=== PATIENT | male | born 1935 | race African-American/Black ===

== ENCOUNTER 2017-03-14 10:15 | Day surgery (SDC) | payer MEDICARE, MEDICAID ==
[2017-03-14] MEDS ORDERED: Sodium Chloride 0.9% 20 ML ONE (10:23)
[2017-03-14] MEDS ORDERED: ADMIXTURE FEE IVPB SCH ×2 (10:30→10:45)
[2017-03-14] MEDS ORDERED: PEMETREXED IVPB SCH ×2 (10:30→10:45)
[2017-03-14] MEDS ORDERED: SODIUM CHLORIDE IVPB SCH ×2 (10:30→10:45)
[2017-03-14] MEDS ORDERED: Ondansetron 2MG/ML MDV 10 MG, Dexamethasone 10 MG, Admixture Fee 1 EACH in Sodium Chlor... IVP SCH (10:30)
[2017-03-14 10:50] VITALS: BP 169/74; TEMP 97.6
== END 2017-03-14 12:34 | disposition home or self-care (01) ==
LOC: ONC/OP 10:15
PROVIDERS: ATTEND Internal Medicine Medical Oncology
DX: Z51.11 Encounter for antineoplastic chemotherapy (principal); C34.11 Malignant neoplasm of upper lobe, right bronchus or lung; C77.8 Secondary and unspecified malignant neoplasm of lymph nodes of multiple regions; C61 Malignant neoplasm of prostate; F17.200 Nicotine dependence, unspecified, uncomplicated; Z79.899 Other long term (current) drug therapy; Z95.828 Presence of other vascular implants and grafts; Z92.21 Personal history of antineoplastic chemotherapy; Z92.3 Personal history of irradiation; Z80.9 Family history of malignant neoplasm, unspecified
CPT/HCPCS: 36415; 80053; 82248; 83615; 84100; 84550; 96367; 96413; A4216; J1100; J1642; J2405; J7050; J9305

== ENCOUNTER 2017-04-13 00:51 | Inpatient (IN) | payer MEDICARE, MEDICAID ==
[2017-04-13 01:55] LABS: Anion Gap 12 mmol/L (-14-95); T. Carbon Dioxide 19.8 mmol/L (1.0-85.0); pH (Venous) 7.302 (7.35-7.45); vO2 Saturation-calc 63.7 % (0.0-100.0)
[2017-04-13 02:04] LABS: Osmolality, Serum 359 mOsm/kg (280-295)
[2017-04-13 02:07] LABS: Anion Gap 23 mmol/L (10-20); BUN (Urea Nitrogen) 45 mg/dL (8.4-25.7); Calc. Creatinine Clearance 0 mL/min (70-130); Calcium 10.4 mg/dL (7.8-10.44); Carbon Dioxide 15 mmol/L (23-31); Chloride 105 mmol/L (98-107); Estimated GFR-MDRD 43
[2017-04-13 02:15] LABS: PTT 17.4 SEC (22.9-36.1)
[2017-04-13 02:21] LABS: Troponin I 0.047 ng/mL (< 0.028)
[2017-04-13] MEDS ORDERED: Eucerin (Mineral Oil/Petrolatum,White) 30 gm Jar TOP PRN (03:11)
[2017-04-13] MEDS ORDERED: Milk Of Magnesia 30 ML UDCUP PO PRN (03:11)
[2017-04-13] MEDS ORDERED: Mag-Al 1200 mg/1200 mg/30 ML UDCUP PO PRN (03:11)
[2017-04-13] MEDS ORDERED: Loratadine 10 MG TAB PO PRN (03:11)
[2017-04-13] MEDS ORDERED: Sodium Chloride 0.65% Nasal 44 ML BOT EA NARE PRN (03:11)
[2017-04-13] MEDS ORDERED: Senokot 8.6 MG TAB PO PRN (03:11)
[2017-04-13] MEDS ORDERED: Acetaminophen 325 MG TAB PO PRN (03:11)
[2017-04-13] MEDS ORDERED: HYDROcodone/Acetaminophen 5/325 mg Tablet PO PRN (03:11)
[2017-04-13] MEDS ORDERED: Diabetic Tussin 200 MG/10 ML UDCUP PO PRN (03:11)
[2017-04-13] MEDS ORDERED: hydrALAZINE 20 MG/ML VIAL SLOW IVP PRN (03:11)
[2017-04-13] MEDS ORDERED: Zolpidem Tartrate 5 MG TAB PO PRN (03:11)
[2017-04-13] MEDS ORDERED: Ondansetron ODT 4 MG TAB PO PRN (03:11)
[2017-04-13] MEDS ORDERED: Ondansetron HCl/PF 4 MG/2 ML Vial IVP PRN (03:11)
[2017-04-13] MEDS ORDERED: Artificial Tears 18 DROP/0.9 ML EA EYE PRN (03:11)
[2017-04-13] MEDS ORDERED: Loperamide HCl 2 MG CAP PO PRN (03:11)
[2017-04-13] MEDS ORDERED: Chloraseptic Spray 180 ml Bottle PO PRN (03:11)
[2017-04-13 03:23] VITALS: BMI 15.5
[2017-04-13] MEDS: Sodium Chloride 0.9% 1,000 ML IV SCH ×3 (03:35→21:29)
--- NOTE | 2017-04-13 04:51 | HP ---
PRIMARY CARE PHYSICIAN: Unknown. [facility] call admission. REASON FOR ADMISSION: Transfer from [facility] for hyperosmolar nonketotic state, acute kidney failure. HISTORY OF PRESENT ILLNESS: An 81-year-old -[place] male who has underlying history of lung cancer and he is getting chemotherapy. He went to [facility] for generalized weakness. Patient was having difficulty ambulation. He was feeling weak. Lately, he was having increasing urination and he was feeling thirsty. The patient was diagnosed with a hyperosmolar nonketotic state at [facility]. This patient is a very poor historian, so most of the history obtained from the emergency room record. The patient denies any previous history of diabetes. He does report weight loss. He denies any constipation, diarrhea. He denies any nausea or vomiting. He denies any chest pain, palpitations, shortness of breath. He denies any abdominal pain. PAST MEDICAL HISTORY: History of prostate cancer, history of lung cancer on chemotherapy. PAST SURGICAL HISTORY: Appendicectomy, MediPort placement on the right upper chest, bronchoscopy. PAST PSYCHIATRIC HISTORY: Reviewed and negative. SOCIAL HISTORY: The patient lives at home with family. He has history of smoking, but quantity unable to determine. He denies any alcohol abuse. He denies any other illicit drug abuse. FAMILY HISTORY: No strong family history of CAD, CVA or cancer. EMERGENCY ROOM COURSE: At the [facility], the patient was started on insulin drip. IV fluid was given. Aspirin 324 mg was given. CURRENT HOME MEDICATIONS: Promethazine 12.5 mg 4 times daily, dexamethasone 4 mg daily, folic acid 1 mg daily, Flomax 0.4 mg p.o. at bedtime. ALLERGIES: No known drug allergies. REVIEW OF SYSTEMS: The following complete review of systems was negative, unless otherwise mentioned in the HPI or below: Constitutional: Weight loss or gain, ability to conduct usual activities. Skin : Rash, itching. Eyes: Double vision, pain. ENT/Mouth: Nose bleeding, neck stiffness, pain, tenderness. Cardiovascular: Palpitations, dyspnea on exertion , orthopnea. Respiratory: Shortness of breath, wheezing, cough, hemoptysis, fever or night sweats. Gastrointestinal: Poor appetite, abdominal pain, heartburn, nausea, vomiting, constipation, or diarrhea. Genitourinary: Urgency , frequency, dysuria, nocturia. Musculoskeletal: Pain, swelling. Neurologic/ Psychiatric: Anxiety, depression. Allergy/Immunologic: Skin rash, bleeding tendency. Please see my HPI for pertinent positives and negatives. All other review of systems reviewed and negative except as mentioned in the HPI. PHYSICAL EXAMINATION: VITAL SIGNS: Currently in our emergency room, blood pressure 125/77, pulse 115 , respiratory rate 22, temperature 98.5, saturation 100%, weight 49.9 kilograms. GENERAL: Patient is currently alert, awake, appears very weak. No acute distress. HEENT: Head: Normocephalic, atraumatic. Eyes: Pupils round, reactive to light. Extraocular muscle intact. ENT: Oropharynx within normal limits. Dry mucous membranes, no oral lesions, no pharyngeal erythema, no exudate. NECK: Supple. Range of motion is normal. No meningeal signs of irritation. LUNGS: Clear to auscultation without any rhonchi or rales. CARDIAC: S1, S2 regular, tachycardia, no murmur, no gallop, no rub. ABDOMEN: Soft, bowel sounds present, nontender, nondistended. No organomegaly , no mass, no suprapubic tenderness. BACK: Unremarkable, no CVA tenderness. EXTREMITIES: Upper extremity passive movement of all joints are normal. Lower extremities: No edema. Good peripheral pulsation. SKIN: No skin rash. Dry. HEMATOLOGICAL SYSTEM: No lymphadenopathy. PSYCHIATRIC: Normal affect. NEUROLOGIC: Nonfocal examination. Patient is moving all 4 limbs, though patient is slightly appears confused. SIGNIFICANT LABORATORY DATA: Chest x-ray based on my review, no acute cardiopulmonary process. Patient has a stable right suprahilar and left lower lobe infiltration. CT brain based on my review, no acute intracranial process. CBC: WBC 9.9, hemoglobin 12.8, platelet 187. INR 1.1, VBG: pH 7.30, CO2 of 37.7, bicarbonate 18.6. BMP: Sodium 139, potassium 5.4, chloride 96, carbon dioxide 18, BUN 48, creatinine 2.08, glucose 1066, calcium 11.5, phosphorus 4.5 , magnesium 2.9. LFT: AST 12, ALT 24, alkaline phosphatase 85, albumin 4.5, lipase 62, CK-MB 1.4 , troponin I 0.030 and subsequent troponin 0.047. Urinalysis unremarkable with glucosuria. ASSESSMENT AND PLAN: 1. Acute metabolic encephalopathy likely due to hyperosmolar nonketotic state as well as acute kidney failure and dehydration. Patient's CT brain is negative for any acute intracranial process and he does not have any focal neurological deficit. 2. Hyperosmolar nonketotic state. This patient has new onset hyperglycemia with diabetes. We will check hemoglobin A1c. Given his severe hyperglycemia, we will keep this patient in IMCU and continue with insulin drip. This patient does not need any overlapping with the dextrose. Once blood sugar is reasonably controlled, then we will turn off insulin drip and start long-acting insulin. We will keep this patient subsequently to medical floor and titrate insulin requirement while in the hospital. The patient will be given IV fluid during this period. 3. Acute kidney failure, likely due to prerenal etiology secondary to hyperosmolar state and osmotic diuresis. The patient will be given NS at 100 mL per hour. We will avoid nephrotoxic agents and we will monitor renal function. We are expecting with hydration, the patient's renal function will improve. 4. Hyperkalemia, likely related with dehydration. We will repeat BMP tomorrow. 5. Elevated troponin, likely due to demand ischemia. We will do serial cardiac enzymes and rule out acute coronary syndrome. Meanwhile, we will continue with aspirin 81 mg p.o. daily. We will check lipid profile tomorrow morning. 6. Moderate protein calorie malnutrition. The patient will be given nutritional supplement with Glucerna. 7. Macrocytic anemia. We will continue with folic acid, vitamin B12 therapy while in hospital. 8. Benign enlargement of prostate with a history of prostate cancer. We will continue Flomax 0.4 mg p.o. daily. 9. Cancer of the lung. Patient is getting chemotherapy. We will notify Oncology tomorrow morning. 10. Generalized weakness. The patient will need PT, OT while in hospital and possible placement if needed. 11. Deep venous thrombosis prophylaxis, heparin 5000 units subcu twice daily. 12. Gastrointestinal prophylaxis. Protonix 40 mg p.o. daily. CODE STATUS: The patient is FULL CODE. Patient does not have any surrogate decision maker. Disposition plan based on clinical course. We are expecting patient's stay in the hospital more than 2 midnights. Plan of care discussed with the patient in detail. RONI
[2017-04-13 06:03] LABS: #Monocytes 0.6 thou/uL (0.11-0.59); #Neutrophils 10.5 thou/uL (1.40-6.50); %Basophils 0.1 % (0.0-1.0); %Eosinophils 0.3 % (0.0-10.0); Hematocrit 38.7 % (42.0-52.0); Mean Platelet Volume 7.7 fL (7.4-10.4); Red Blood Cell (RBC) Count 4.11 mill/uL (4.70-6.10); White Blood Cell (WBC) Count 12.1 thou/uL (4.8-10.8)
[2017-04-13 06:13] LABS: Hemoglobin A1c 10.3 % (4.0-6.0)
[2017-04-13 06:19] LABS: ALT (SGPT) 19 U/L (8-55); AST (SGOT) 14 U/L (5-34); Alkaline Phosphatase 81 U/L (40-150); Anion Gap 19 mmol/L (10-20); BUN (Urea Nitrogen) 42 mg/dL (8.4-25.7); Bilirubin, Total 0.4 mg/dL (0.2-1.2); Calc. Creatinine Clearance 26 mL/min (70-130); Calcium 11.1 mg/dL (7.8-10.44); Carbon Dioxide 22 mmol/L (23-31); Chloride 106 mmol/L (98-107); Cholesterol 233 mg/dl (< 200 Desired); Estimated GFR-MDRD 54; Globulin 3.8 g/dL (2.4-3.5); LDL Cholesterol, Calculated 126 mg/dL; Magnesium 2.8 mg/dL (1.6-2.6); Phosphorus 2.4 mg/dL (2.3-4.7)
[2017-04-13 06:21] LABS: Troponin I 0.053 ng/mL (< 0.028)
[2017-04-13] MEDS: Heparin 5,000 UNITS/ML VIAL SC SCH ×2 (08:10→21:23)
[2017-04-13] MEDS: Folic Acid 1 MG TAB PO SCH (08:15)
[2017-04-13] MEDS: Cyanocobalamin (Vitamin B-12) 1,000 MCG TAB PO SCH (08:15)
[2017-04-13] MEDS: Multivitamin W/ Minerals 1 TAB PO SCH (08:15)
[2017-04-13] MEDS ORDERED: FLU VACC TS2017-18 (>65YR) 0.5 ML SYRINGE IM ONE (09:00)
--- NOTE | 2017-04-13 11:17 | CON ---
DATE OF CONSULTATION: 04/13/2017 HISTORY OF PRESENT ILLNESS: This is an 81-year-old gentleman who was admitted for w eakness, uncontrolled diabetes. He was seen by me about 2 years ago when he had a 3 x 2.5 cm right a pex. He underwent a bronchoscopy at that time. He has been smoking for most of his life. It is unclear whether he is smoking at this time, but prio r to that he had no TB or pneumonia. He is weak, slightly confused. History is extensively outlined in previous medical records. PAST MEDICAL HISTORY: Extensive chemical fernandez, a prolonged hospitalization in [place], prostate can cer, BPH, lung cancer. PAST SURGICAL HISTORY: Cataract, appendix, prostate. MEDICATIONS: From home has included Flomax 0.4, Megace 40, folic acid, Decadron, Casodex 50, Tylenol . Since admission, he is started on insulin drip and antibiotics. REVIEW OF SYSTEMS: Unremarkable. PHYSICAL EXAMINATION: GENERAL: He is awake, alert, responsive, in no distress. VITAL SIGNS: Saturations 100%, pulse 107, 97, blood pressure 100/65. CHEST: Chest revealed decreased breath sounds without any wheezing. CARDIAC: Normal S1-S2. No gallops. ABDOMEN: Soft. No masses. LABORATORY: White count 10,000, H&H is 12 and 38, platelet count is 192, blood sugar this morning is 349, on insulin drip. Creatinine 1.52. IMPRESSION: 1. Uncontrolled diabetes, nonketotic diabetic situation. 2. Non-small cell lung cancer. 3. Cachexia. 4. Benign prostatic hypertrophy. 5. Prostate cancer. PLAN: Continue insulin, switch over to oral medication. Otherwise, PT, nutrition, and supportive ca re. Prognosis is poor. Will discuss with family as they arrive.
--- NOTE | 2017-04-13 12:48 | PDOC.EVN ---
Event Note - Event Note Event Note: Pt seen and examined, admitted formetabolic encephalopathy, acidemic with pH 7.3 , elevated glucose, and B-hydroxybutarate of 1.74. Seen by pulm. Pt without known history of DM. On insulin gtt, no gap. trnasition to a long acting insulin, SSi for correction. Poor prognosis per pulm.
[2017-04-13] MEDS ORDERED: Dextrose 50% Abboject 50 ML SYRINGE IVP PRN (15:18)
[2017-04-13] MEDS ORDERED: Dextrose 5% in Water 1,000 ML IV PRN (15:18)
[2017-04-13] MEDS ORDERED: Insulin Detemir 100 UNITS/ML 30 UNITS in Pre-Filled Syringe SC SCH (15:30)
[2017-04-13] MEDS: HumaLOG 300 UNITS/3 ML VIAL SC PRN (21:23)
[2017-04-14 05:16] LABS: #Lymphocytes 0.7 thou/uL (1.20-3.40); #Monocytes 0.2 thou/uL (0.11-0.59); #Neutrophils 5.8 thou/uL (1.40-6.50); %Basophils 0.2 % (0.0-1.0); %Eosinophils 0.7 % (0.0-10.0); %Monocytes 2.6 % (0.0-10.0); Mean Platelet Volume 7.6 fL (7.4-10.4); Red Blood Cell (RBC) Count 3.48 mill/uL (4.70-6.10); White Blood Cell (WBC) Count 6.7 thou/uL (4.8-10.8)
[2017-04-14 05:50] LABS: Anion Gap 12 mmol/L (10-20); BUN (Urea Nitrogen) 22 mg/dL (8.4-25.7); Calc. Creatinine Clearance 51 mL/min (70-130); Carbon Dioxide 22 mmol/L (23-31); Chloride 111 mmol/L (98-107); Estimated GFR-MDRD Greater than 90
[2017-04-14] MEDS: HumaLOG 300 UNITS/3 ML VIAL SC PRN ×2 (06:14→20:52)
[2017-04-14] MEDS: Sodium Chloride 0.9% 1,000 ML IV SCH ×2 (06:19→16:49)
[2017-04-14] MEDS: Multivitamin W/ Minerals 1 TAB PO SCH (09:12)
[2017-04-14] MEDS: Heparin 5,000 UNITS/ML VIAL SC SCH ×2 (09:13→20:51)
[2017-04-14] MEDS: Cyanocobalamin (Vitamin B-12) 1,000 MCG TAB PO SCH (09:13)
[2017-04-14] MEDS: Folic Acid 1 MG TAB PO SCH (09:13)
--- NOTE | 2017-04-14 09:46 | PRG ---
DATE OF SERVICE: 04/14/2017 SUBJECTIVE: This morning, the patient is awake, alert, responsive, in no distress. OBJECTIVE: VITAL SIGNS: Blood pressure is 110/69, sats are 100%, pulse 66, temperature 98. CHEST: Chest reveals decreased breath sounds, no wheezing. CARDIAC: Normal S1, S2, no gallops. ABDOMEN: Soft, no masses. LABORATORY DATA: White count 6000, H&H is 10 and 30, platelet count normal. Blood sugar 154. IMPRESSION: 1. Chronic obstructive pulmonary disease. 2. Lung cancer. 3. Diabetes. 4. Azotemia, resolved. PLAN: From the pulmonary standpoint of view, switch him to oral antibiotics. He can be transferred out of the MICU.
[2017-04-14] MEDS ORDERED: Dexamethasone 4 MG TAB PO SCH (11:00)
[2017-04-14] MEDS ORDERED: Bicalutamide 50 MG TAB PO SCH (11:00)
[2017-04-14] MEDS ORDERED: Megestrol Acetate 40 MG TAB PO SCH (11:00)
--- NOTE | 2017-04-14 15:49 | PDOC.PN ---
- Subjective Encounter Start Date: 04/14/17 Encounter Start Time: 15:44 Subjective: suzanne and examined. no new complaints. no overnight events - Objective Resuscitation Status: Resuscitation Status FULL:Full Resuscitation MAR Reviewed: Yes Vital Signs & Weight: Vital Signs (12 hours) Temp Pulse Resp BP Pulse Ox 04/14/17 11:44 98.9 F 103 H 18 04/14/17 11:20 98.9 F 103 H 18 124/75 04/14/17 10:45 99.1 F 106 H 18 119/71 100 04/14/17 07:48 98.5 F 102 H 20 100 04/14/17 07:17 98.5 F 102 H 20 110/69 100 04/14/17 04:00 98.7 F 103 H 16 133/85 100 Weight Admit Weight 105 lb 4.8 oz Weight 105 lb 4.8 oz I&O: 04/13/17 04/14/17 04/15/17 06:59 06:59 06:59 Intake Total 283 3880.4 581 Output Total 100 100 Balance 183 3780.4 581 Result Diagrams: 04/14/17 05:01 04/14/17 05:01 Additional Labs: Accuchecks 04/14/17 04/14/17 04/14/17 10:46 05:33 00:54 POC Glucose 137 H 154 H 103 04/14/17 04/13/17 04/13/17 00:14 20:30 16:13 POC Glucose 59 L* 165 H 83 Laboratory Tests 04/13/17 04/13/17 04/13/17 01:29 01:40 01:52 WBC POC VBG pH 7.302 L VBG pCO2 37.7 L Anion Gap 23 H Creatinine 1.83 H Glucose 816 H* Hemoglobin A1c Troponin I 0.047 H Triglycerides Cholesterol LDL Cholesterol, Calc B-Hydroxybutyrate 04/13/17 04/13/17 04/13/17 05:53 05:53 05:53 WBC POC VBG pH VBG pCO2 Anion Gap 19 Creatinine 1.52 H Glucose 560 H* Hemoglobin A1c Troponin I 0.053 H Triglycerides 364 H Cholesterol 233 H LDL Cholesterol, Calc 126 B-Hydroxybutyrate 1.74 H 04/13/17 04/13/17 04/14/17 05:53 05:53 05:01 WBC 12.1 H POC VBG pH VBG pCO2 Anion Gap 12 Creatinine 0.77 Glucose 127 H Hemoglobin A1c 10.3 H Troponin I Triglycerides Cholesterol LDL Cholesterol, Calc B-Hydroxybutyrate 04/14/17 05:01 WBC 6.7 POC VBG pH VBG pCO2 Anion Gap Creatinine Glucose Hemoglobin A1c Troponin I Triglycerides Cholesterol LDL Cholesterol, Calc B-Hydroxybutyrate Microbiology 04/12/17 22:10 Venous blood - Left Hand Blood Culture - Preliminary Specimen has been received and culture in progress. No Growth to date. 04/12/17 21:55 Venous blood - Left Arm Blood Culture - Preliminary Specimen has been received and culture in progress. No Growth to date. 04/12/17 21:50 Urine voided Urine Culture - Preliminary negative so far Phys Exam - Physical Examination Constitutional: NAD HEENT: PERRLA, moist MMs, sclera anicteric, oral pharynx no lesions Neck: no nodes, no JVD, supple, full ROM Respiratory: no wheezing, no rales, no rhonchi, clear to auscultation bilateral Cardiovascular: RRR, no significant murmur Gastrointestinal: soft, non-tender, no distention, positive bowel sounds Musculoskeletal: no edema, pulses present Neurological: non-focal, normal sensation, moves all 4 limbs Psychiatric: normal affect, A&O x 3 Skin: no rash Dx/Plan (1) Newly diagnosed diabetes Code(s): E11.9 - TYPE 2 DIABETES MELLITUS WITHOUT COMPLICATIONS Status: Acute (2) PNA (pneumonia) Code(s): J18.9 - PNEUMONIA, UNSPECIFIED ORGANISM Status: Acute (3) Diabetic hyperosmolar non-ketotic state Code(s): E11.00 - TYPE 2 DIAB W HYPROSM W/O NONKET HYPRGLY-HYPROS COMA (N[facility]) Status: Suspected (4) BETTY (acute kidney injury) Code(s): N17.9 - ACUTE KIDNEY FAILURE, UNSPECIFIED Status: Resolved (5) Acute metabolic encephalopathy Code(s): G93.41 - METABOLIC ENCEPHALOPATHY Status: Resolved (6) Hyperkalemia Code(s): E87.5 - HYPERKALEMIA Status: Resolved (7) Malnutrition Code(s): E46 - UNSPECIFIED PROTEIN-CALORIE MALNUTRITION Status: Chronic Qualifiers: Malnutrition type: protein-calorie malnutrition Protein-calorie malnutrition severity: moderate Qualified Code(s): E44.0 - Moderate protein- calorie malnutrition (8) Chronic anemia Code(s): D64.9 - ANEMIA, UNSPECIFIED Status: Acute (9) COPD (chronic obstructive pulmonary disease) Status: Acute (10) Lung cancer Code(s): C34.90 - MALIGNANT NEOPLASM OF UNSP PART OF UNSP BRONCHUS OR LUNG Status: Chronic (11) H/O malignant neoplasm of prostate Code(s): Z85.46 - PERSONAL HISTORY OF MALIGNANT NEOPLASM OF PROSTATE Status: Chronic (12) Hyperlipidemia Code(s): E78.5 - HYPERLIPIDEMIA, UNSPECIFIED Status: Acute Comment: New diagnosis - Plan DVT proph w/SCDs Consult manager [facility] for Diabetic and low fat diet education. -: blood sugar better controlled.Will need insulin+OHG on Dc w glucometer etc -: Cont levaquin for PNA on cxr.change to PO. -: OK to transfer to medical. -: may need to add Statin & Fish Oil etc later if diet fails for HLD * . Review of Systems - Review of Systems Constitutional: negative: Fever, Chills, Sweats, Weakness, Malaise, Other Eyes: negative: Pain, Vision Change, Conjunctivae Inflammation, Eyelid Inflammation, Redness, Other ENT: negative: Ear Pain, Ear Discharge, Nose Pain, Nose Discharge, Nose Congestion, Mouth Pain, Mouth Swelling, Throat Pain, Throat Swelling, Other Respiratory: negative: Cough, Dry, Shortness of Breath, Hemoptysis, SOB with Excertion, Pleuritic Pain, Sputum, Wheezing Cardiovascular: negative: Chest Pain, Palpitations, Orthopnea, Paroxysmal Noc. Dyspnea, Edema, Light Headedness, Other Gastrointestinal: negative: Nausea, Vomiting, Abdominal Pain, Diarrhea, Constipation, Melena, Hematochezia, Other Genitourinary: negative: Dysuria, Frequency, Incontinence, Hematuria, Retention , Other Musculoskeletal: negative: Neck Pain, Shoulder Pain, Arm Pain, Back Pain, Hand Pain, Leg Pain, Foot Pain, Other Neurological: negative: Weakness, Numbness, Incoordination, Change in Speech, Confusion, Seizures, Other - Medications/Allergies Allergies/Adverse Reactions: Allergies Allergy/AdvReac Type Severity Reaction Status Date / Time No Known Allergies Allergy Verified 04/13/17 03:40 Medications: Current Medications Acetaminophen (Tylenol) 650 mg PO Q4H PRN PRN Reason: Headache/Fever or Pain Hydrocodone Bitart/Acetaminophen ([place] 5/325) 1 tab PO Q4H PRN PRN Reason: Moderate Pain (4-6) Al Hydroxide/Mg Hydroxide (Maalox) 30 ml PO Q6H PRN PRN Reason: Heartburn or Indigestion Artificial Tears (Tears Naturale) 0 drop EA EYE PRN PRN PRN Reason: Dry Eyes Aspirin (Aspirin Chewable) 81 mg PO DAILY [facility] Last Admin: 04/14/17 09:12 Dose: 81 mg Bicalutamide (Casodex) 50 mg PO DAILY [facility] Cyanocobalamin (Vitamin B-12) 1,000 mcg PO DAILY [facility] Last Admin: 04/14/17 09:13 Dose: 1,000 mcg Dexamethasone (Decadron) 4 mg PO DAILY [facility] Dextrose/Water (Dextrose 50%) 25 gm IVP PRN PRN PRN Reason: HYPOGLYCEMIA PROTOCOL Folic Acid (Folvite) 1 mg PO DAILY [facility] Last Admin: 04/14/17 09:13 Dose: 1 mg Glucagon (Glucagon) 1 mg IM PRN PRN PRN Reason: HYPOGLYCEMIA PROTOCOL Guaifenesin (Robitussin Sf) 200 mg PO Q4H PRN PRN Reason: Cough Heparin Sodium (Porcine) (Heparin) 5,000 units SC BID [facility] Last Admin: 04/14/17 09:13 Dose: 5,000 units Hydralazine HCl (Apresoline) 10 mg SLOW IVP Q4H PRN PRN Reason: Systolic BP > 180 Sodium Chloride (Normal Saline 0.9%) 1,000 mls @ 100 mls/hr IV .Q10H [facility] Last Admin: 04/14/17 06:19 Dose: 1,000 mls Levofloxacin 500 mg/ Device 100 mls @ 100 mls/hr IVPB Q2DAYS [facility] Last Admin: 04/13/17 03:55 Dose: 100 mls Insulin Detemir 30 units/ (Miscellaneous Medication) 0.3 mls @ 0 mls/hr SC HS [facility] Dextrose/Water (D5w) 1,000 mls @ 0 mls/hr IV INF PRN; As Directed PRN Reason: HYPOGLYCEMIA PROTOCOL Insulin Human Lispro (Humalog) 0 units SC .MODERATE SLIDING SC PRN; Protocol PRN Reason: MODERATE SLIDING SCALE Last Admin: 04/14/17 06:14 Dose: 2 unit Iron/Minerals/Multivitamins (Theragran M) 1 tab PO DAILY [facility] Last Admin: 04/14/17 09:12 Dose: 1 tab Loperamide HCl (Imodium) 2 mg PO PRN PRN PRN Reason: Diarrhea/Loose Stools Loratadine (Claritin) 10 mg PO DAILYPRN PRN PRN Reason: Sinus Symptoms Magnesium Hydroxide (Milk Of Magnesium) 30 ml PO DAILYPRN PRN PRN Reason: Constipation Megestrol Acetate (Megace) 40 mg PO DAILY [facility] Mineral Oil/White Petrolatum (Eucerin Cream) 0 gm TOP BIDPRN PRN PRN Reason: Dry Skin Ondansetron HCl (Zofran Odt) 4 mg PO Q6H PRN PRN Reason: Nausea/Vomiting Ondansetron HCl (Zofran) 4 mg IVP Q6H PRN PRN Reason: Nausea/Vomiting Pantoprazole Sodium (Protonix) 40 mg PO DAILY [facility] Last Admin: 04/14/17 09:13 Dose: 40 mg Phenol (Chloraseptic [place] 180 Ml Bot) 0 ml PO PRN PRN PRN Reason: Sore Throat Senna (Senokot) 2 tab PO HSPRN PRN PRN Reason: Constipation Sodium Chloride (Gore Nasal [place] 0.65%) 0 ml EA NARE QIDPRN PRN PRN Reason: Nasal Congestion Sodium Chloride (Flush - Normal Saline) 10 ml IVF Q12HR [facility] Last Admin: 04/14/17 09:13 Dose: 10 ml Sodium Chloride (Flush - Normal Saline) 10 ml IVF PRN PRN PRN Reason: Saline Flush Tamsulosin HCl (Flomax) 0.4 mg PO BID [facility] Zolpidem Tartrate (Ambien) 5 mg PO HSPRN PRN PRN Reason: Insomnia
[2017-04-14] MEDS: Tamsulosin HCl 0.4 MG CAP PO SCH (20:51)
[2017-04-14] MEDS ORDERED: Insulin Detemir 100 UNITS/ML 30 UNITS in Pre-Filled Syringe SC SCH (21:00)
[2017-04-15] MEDS: Sodium Chloride 0.9% 1,000 ML IV SCH ×3 (04:07→23:15)
[2017-04-15 04:50] LABS: Anion Gap 11 mmol/L (10-20); BUN (Urea Nitrogen) 14 mg/dL (8.4-25.7); Calc. Creatinine Clearance 60 mL/min (70-130); Calcium 8.6 mg/dL (7.8-10.44); Carbon Dioxide 21 mmol/L (23-31); Chloride 107 mmol/L (98-107); Estimated GFR-MDRD Greater than 90
[2017-04-15 06:19] LABS: #Lymphocytes 0.8 thou/uL (1.20-3.40); #Monocytes 0.3 thou/uL (0.11-0.59); #Neutrophils 3.9 thou/uL (1.40-6.50); %Basophils 0.5 % (0.0-1.0); %Eosinophils 0.5 % (0.0-10.0); %Lymphocytes 16.7 % (21.0-51.0); %Monocytes 5.1 % (0.0-10.0); Hematocrit 30.1 % (42.0-52.0); Mean Platelet Volume 7.9 fL (7.4-10.4); Red Blood Cell (RBC) Count 3.16 mill/uL (4.70-6.10)
[2017-04-15] MEDS: Multivitamin W/ Minerals 1 TAB PO SCH (10:01)
[2017-04-15] MEDS: Cyanocobalamin (Vitamin B-12) 1,000 MCG TAB PO SCH (10:01)
[2017-04-15] MEDS: Megestrol Acetate 40 MG TAB PO SCH (10:02)
[2017-04-15] MEDS: Folic Acid 1 MG TAB PO SCH (10:02)
[2017-04-15] MEDS: Tamsulosin HCl 0.4 MG CAP PO SCH ×2 (10:02→20:12)
[2017-04-15] MEDS: Dexamethasone 4 MG TAB PO SCH (10:02)
[2017-04-15] MEDS: Bicalutamide 50 MG TAB PO SCH (10:02)
[2017-04-15] MEDS: Heparin 5,000 UNITS/ML VIAL SC SCH ×2 (10:06→20:11)
--- NOTE | 2017-04-15 12:54 | PRG ---
DATE OF SERVICE: 04/15/2017 SUBJECTIVE: This morning, he says he is better, less short of breath, less cough. His blood sugars are better. He is eating. No shortness of breath. OBJECTIVE: VITAL SIGNS: Blood pressure 140/84, sats 100% on room air, temperature is 97, pulse 80. CHEST: No wheezing. CARDIAC: Normal S1, S2. ABDOMEN: Soft, no masses. LABORATORY DATA: White count 5000, H&H 9 and 30, platelet count is 117. Electrolytes are normal. S ugar was 56. IMPRESSION: 1. Diabetes, much improved. 2. Lung cancer. 3. Chronic obstructive pulmonary disease, stable. PLAN: From the pulmonary standpoint of view, he can follow up with his primary care physician. We w ill follow at a distance.
--- NOTE | 2017-04-15 13:54 | PDOC.PN ---
- Subjective Encounter Start Date: 04/15/17 Encounter Start Time: 13:52 Mr. Salgado was seen today in follow-up regarding New onset DM, and acute renal failure. He is sitting up in bed eating. He does not have any complaints. He denies chest pain or shortness of breath. - Objective Resuscitation Status: Resuscitation Status FULL:Full Resuscitation MAR Reviewed: Yes Vital Signs & Weight: Vital Signs (12 hours) Temp Pulse Resp BP Pulse Ox 04/15/17 10:58 97.8 F 97 20 125/72 100 04/15/17 08:00 97.7 F 100 20 100 04/15/17 07:15 97.7 F 100 20 148/84 H 100 04/15/17 04:00 97.7 F 90 20 110/65 97 Weight Admit Weight 105 lb 4.8 oz Weight 105 lb 4.8 oz I&O: 04/14/17 04/15/17 04/16/17 06:59 06:59 06:59 Intake Total 3880.4 2941 Output Total 100 Balance 3780.4 2941 Result Diagrams: 04/15/17 03:33 04/15/17 03:33 Additional Labs: Accuchecks 04/15/17 04/15/17 04/14/17 11:00 04:03 20:50 POC Glucose 196 H 80 372 H 04/14/17 16:04 POC Glucose 188 H Phys Exam - Physical Examination HEENT: PERRLA Respiratory: no wheezing, no rales, no rhonchi, clear to auscultation bilateral Cardiovascular: RRR, no significant murmur Gastrointestinal: soft, non-tender, positive bowel sounds Musculoskeletal: no edema Dx/Plan (1) COPD (chronic obstructive pulmonary disease) Status: Acute (2) Newly diagnosed diabetes Code(s): E11.9 - TYPE 2 DIABETES MELLITUS WITHOUT COMPLICATIONS Status: Acute (3) PNA (pneumonia) Code(s): J18.9 - PNEUMONIA, UNSPECIFIED ORGANISM Status: Acute (4) H/O malignant neoplasm of prostate Code(s): Z85.46 - PERSONAL HISTORY OF MALIGNANT NEOPLASM OF PROSTATE Status: Chronic (5) Lung cancer Code(s): C34.90 - MALIGNANT NEOPLASM OF UNSP PART OF UNSP BRONCHUS OR LUNG Status: Chronic (6) Malnutrition Code(s): E46 - UNSPECIFIED PROTEIN-CALORIE MALNUTRITION Status: Chronic Qualifiers: Malnutrition type: protein-calorie malnutrition Protein-calorie malnutrition severity: moderate Qualified Code(s): E44.0 - Moderate protein- calorie malnutrition - Plan * Community Acquired Pneumonia- patient is improving - Patient had a Speech evaluation for swallowing last yesr * DM- patient had a low glucose level last night- will decrease the dose of Levemir, and add an evening snack- re-assess tomorrow * Patient will need to training on insulin administration * Lung Cancer- stable * Hopefully home tomorrow.
[2017-04-15] MEDS: HumaLOG 300 UNITS/3 ML VIAL SC PRN (17:21)
[2017-04-15] MEDS ORDERED: Insulin Detemir 100 UNITS/ML 25 UNITS in Pre-Filled Syringe SC SCH (21:00)
[2017-04-16] MEDS: Dexamethasone 4 MG TAB PO SCH (09:05)
[2017-04-16] MEDS: Cyanocobalamin (Vitamin B-12) 1,000 MCG TAB PO SCH (09:05)
[2017-04-16] MEDS: Megestrol Acetate 40 MG TAB PO SCH (09:06)
[2017-04-16] MEDS: Heparin 5,000 UNITS/ML VIAL SC SCH (09:06)
[2017-04-16] MEDS: Multivitamin W/ Minerals 1 TAB PO SCH (09:06)
[2017-04-16] MEDS: Folic Acid 1 MG TAB PO SCH (09:06)
[2017-04-16] MEDS: Tamsulosin HCl 0.4 MG CAP PO SCH (09:07)
[2017-04-16] MEDS: Bicalutamide 50 MG TAB PO SCH (09:08)
--- NOTE | 2017-04-16 10:23 | PDOC.PN ---
- Subjective Encounter Start Date: 04/16/17 Encounter Start Time: 10:21 Mr. Salgado says he feels ready to go home. He feels confident about using insulin. He denies any trouble breathing. - Objective Resuscitation Status: Resuscitation Status FULL:Full Resuscitation MAR Reviewed: Yes Vital Signs & Weight: Vital Signs (12 hours) Temp Pulse Resp BP Pulse Ox 04/16/17 08:00 97.6 F 91 18 139/77 97 04/16/17 04:00 97.6 F 98 16 122/69 96 04/16/17 00:00 98.2 F 88 16 166/78 H 98 Weight Admit Weight 105 lb 4.8 oz Weight 105 lb 4.8 oz I&O: 04/15/17 04/16/17 04/17/17 06:59 06:59 06:59 Intake Total 2941 2950 Balance 2941 2950 Result Diagrams: 04/15/17 03:33 04/15/17 03:33 Additional Labs: Accuchecks 04/16/17 04/16/17 04/15/17 06:15 05:31 20:08 POC Glucose 116 H 67 L 257 H 04/15/17 04/15/17 04/13/17 16:48 11:00 07:11 POC Glucose 191 H 196 H 452 H 04/13/17 04/13/17 03:12 02:08 POC Glucose Greater than 550 H* Greater than 550 H* Phys Exam - Physical Examination HEENT: PERRLA Respiratory: no wheezing, no rales, no rhonchi Cardiovascular: RRR, no significant murmur Gastrointestinal: soft, non-tender, positive bowel sounds Musculoskeletal: no edema Dx/Plan (1) COPD (chronic obstructive pulmonary disease) Status: Acute (2) Newly diagnosed diabetes Code(s): E11.9 - TYPE 2 DIABETES MELLITUS WITHOUT COMPLICATIONS Status: Acute (3) PNA (pneumonia) Code(s): J18.9 - PNEUMONIA, UNSPECIFIED ORGANISM Status: Acute (4) H/O malignant neoplasm of prostate Code(s): Z85.46 - PERSONAL HISTORY OF MALIGNANT NEOPLASM OF PROSTATE Status: Chronic (5) Lung cancer Code(s): C34.90 - MALIGNANT NEOPLASM OF UNSP PART OF UNSP BRONCHUS OR LUNG Status: Chronic (6) Malnutrition Code(s): E46 - UNSPECIFIED PROTEIN-CALORIE MALNUTRITION Status: Chronic Qualifiers: Malnutrition type: protein-calorie malnutrition Protein-calorie malnutrition severity: moderate Qualified Code(s): E44.0 - Moderate protein- calorie malnutrition - Plan * Pneumonia- resolving * DM- better controlled, but he still had a slightly low reading early this morning, especially for someone his age. Will cut back insulin even more to 20 units at bedtime * He is stable for discharge home..
--- NOTE | 2017-04-16 12:19 | DIS ---
DATE OF ADMISSION: 04/13/2017 DATE OF DISCHARGE: 04/16/2017 PRIMARY CARE PHYSICIAN: He currently does not have a primary care physician. DISCHARGE DISPOSITION: Home. PRIMARY DISCHARGE DIAGNOSES: 1. Community-acquired pneumonia. 2. Diabetes mellitus type 2, newly diagnosed. 3. History of lung cancer. 4. History of prostate cancer. DISCHARGE MEDICATIONS: Include Levaquin 500 mg 1 p.o. daily for 5 days, Flomax 0.4 mg twice daily, p romethazine 12.5 mg q.6 hours as needed, Megace 40 mg daily, Levemir insulin 20 units subcu at bedtim e, folic acid 1 mg daily, Decadron 4 mg daily, Casodex 50 mg daily, Tylenol #3 one to two tablets q.6 hours as needed. CODE STATUS: FULL CODE. ALLERGIES: No known drug allergies. HOSPITAL COURSE: Mr. Salgado is a pleasant 81-year-old gentleman who presented to the emergency [facility] with generalized weakness and difficulty ambulating. He was found to have a community-acquired pne umonia. He also was noted to be hyperglycemic and hyperosmolar with no known previous history of dawna betes mellitus. He was diagnosed with new onset diabetes and started on insulin. He was trained on how to use insulin at home and says that he will have help with his and granddaughter with admin istrating the insulin. He was also counseled on the need for outpatient followup and to find a prima care physician. He says he has heard about Dr. Frey in this area and plans to likely see her. Th erefore, the patient was discharged home in good condition and was instructed to have close outpatien t followup.
[2017-04-16 12:28] VITALS: TEMP 97.8
[2017-04-16 13:41] VITALS: BP 128/61
== END 2017-04-16 11:50 | disposition home or self-care (01) | DRG 682 ==
LOC: ERS 00:51 → IMCU/EMU 01:11 → T4-B 04-14 11:25
PROVIDERS: ADMIT Internal Medicine; ATTEND Internal Medicine
DX: N17.9 Acute kidney failure, unspecified (principal); J18.9 Pneumonia, unspecified organism; G93.41 Metabolic encephalopathy; E87.0 Hyperosmolality and hypernatremia; R64 Cachexia; J44.0 Chronic obstructive pulmonary disease with (acute) lower respiratory infection; E44.0 Moderate protein-calorie malnutrition; C34.90 Malignant neoplasm of unspecified part of unspecified bronchus or lung; I24.8 Other forms of acute ischemic heart disease; Z68.1 Body mass index [BMI] 19.9 or less, adult; E86.0 Dehydration; E11.65 Type 2 diabetes mellitus with hyperglycemia; Z92.21 Personal history of antineoplastic chemotherapy; Z85.46 Personal history of malignant neoplasm of prostate; Z95.828 Presence of other vascular implants and grafts; E87.5 Hyperkalemia; D64.9 Anemia, unspecified; N40.0 Benign prostatic hyperplasia without lower urinary tract symptoms; E78.5 Hyperlipidemia, unspecified
CPT/HCPCS: 36415; 36416; 80048; 80061; 82010; 82330; 82803; 83036; 83735; 83930; 84100; 84484; 85014; 85025; 85610; 85730; 99285; A4216; G8978-GP-CL; G8979-GP-CI; G8987-GO-CK; G8988-GO-CI; J1644; J1815; J1956; J8540; S0179

== ENCOUNTER 2017-04-25 10:04 | Day surgery (SDC) | payer MEDICARE, MEDICAID ==
[2017-04-25] MEDS ORDERED: Dexamethasone 10 MG, Ondansetron 2MG/ML MDV 10 MG, Admixture Fee 1 EACH in Sodium Chlor... IVPB SCH (10:15)
[2017-04-25] MEDS ORDERED: Cyanocobalamin 1000 MCG/ML VIAL SC SCH (10:15)
[2017-04-25] MEDS ORDERED: Sodium Chloride 0.9% 20 ML ONE (10:21)
[2017-04-25] MEDS ORDERED: SODIUM CHLORIDE IVPB SCH (10:30)
[2017-04-25] MEDS ORDERED: PEMETREXED IVPB SCH (10:30)
[2017-04-25] MEDS ORDERED: ADMIXTURE FEE IVPB SCH (10:30)
[2017-04-25 10:42] VITALS: BP 116/63; TEMP 97.3
== END 2017-04-25 12:52 | disposition home or self-care (01) ==
LOC: ONC/OP 10:04
PROVIDERS: ATTEND Internal Medicine Medical Oncology
DX: Z51.11 Encounter for antineoplastic chemotherapy (principal); C34.11 Malignant neoplasm of upper lobe, right bronchus or lung; C77.8 Secondary and unspecified malignant neoplasm of lymph nodes of multiple regions; C79.51 Secondary malignant neoplasm of bone; E11.9 Type 2 diabetes mellitus without complications; N40.0 Benign prostatic hyperplasia without lower urinary tract symptoms; F17.200 Nicotine dependence, unspecified, uncomplicated; Z79.2 Long term (current) use of antibiotics; Z79.4 Long term (current) use of insulin; Z79.52 Long term (current) use of systemic steroids; Z79.899 Other long term (current) drug therapy; Z95.828 Presence of other vascular implants and grafts; Z90.49 Acquired absence of other specified parts of digestive tract; Z98.890 Other specified postprocedural states; Z85.46 Personal history of malignant neoplasm of prostate
CPT/HCPCS: 96372; 96413; A4216; J1100; J1642; J2405; J3420; J7050; J9305

== ENCOUNTER 2017-04-30 14:11 | Inpatient (IN) | payer MEDICARE, MEDICAID ==
[2017-04-30 14:47] LABS: #Basophils 0.1 thou/uL (0.0-0.2); #Lymphocytes 1.3 thou/uL (1.20-3.40); #Monocytes 0.2 thou/uL (0.11-0.59); #Neutrophils 2.3 thou/uL (1.40-6.50); %Basophils 2.3 % (0.0-1.0); %Eosinophils 0.5 % (0.0-10.0); %Lymphocytes 32.2 % (21.0-51.0); %Monocytes 5.5 % (0.0-10.0); Mean Platelet Volume 6.8 fL (7.4-10.4); Red Blood Cell (RBC) Count 3.18 mill/uL (4.70-6.10); White Blood Cell (WBC) Count 3.9 thou/uL (4.8-10.8)
[2017-04-30 15:13] LABS: ALT (SGPT) 18 U/L (8-55); AST (SGOT) 25 U/L (5-34); Alkaline Phosphatase 57 U/L (40-150); Anion Gap 14 mmol/L (10-20); BUN (Urea Nitrogen) 9 mg/dL (8.4-25.7); Bilirubin, Total 0.6 mg/dL (0.2-1.2); Calc. Creatinine Clearance 0 mL/min (70-130); Calcium 9.8 mg/dL (7.8-10.44); Carbon Dioxide 20 mmol/L (23-31); Chloride 99 mmol/L (98-107); Estimated GFR-MDRD Greater than 90; Globulin 3.3 g/dL (2.4-3.5); Protein, Total 6.9 g/dL (5.8-8.1)
[2017-04-30 18:22] LABS: Bilirubin Small (Negative); Blood, Urine Negative (Negative); Glucose, Urine (Dipstick) Negative (Negative); Ketone, Urine Trace mg/dL (Negative); Nitrite Positive (Negative); Protein, Urine (Dipstick) 30 mg/dL (Neg-Trace)
[2017-04-30 18:25] LABS: Bacteria/HPF 2+ HPF (None Seen); Hyaline Casts/LPF 4-6 HYALINE CAST LPF (0-3 Hyaline); RBC/HPF 0-3 HPF (0-3); Squamous Epithelial 0-3 HPF (0-3)
[2017-04-30 18:45] LABS: Yeast-All Forms None Seen HPF (None Seen)
--- NOTE | 2017-04-30 18:56 | RAD ---
CHEST ONE VIEW: History: Weakness, dehydration. Comparison: 04-12-17 and 02-10-17 FINDINGS: Stable right sided Mediport catheter. Atherosclerosis of the aorta is noted. Normal cardiac silhouett e. The pulmonary vessels and hilum are normal. Costophrenic angles are clear. Persistent opacificatio n of the left infrahilar region. Hyperinflation. No pneumothorax or osseous abnormalities. IMPRESSION: Chronic changes. POS: [facility]
[2017-04-30 19:08] LABS: Lactic Acid - Sepsis 2.5 mmol/L (0.5-2.2)
[2017-04-30 19:12] LABS: CK (CPK) 22 U/L (30-200); Lipase 27 U/L (8-78)
[2017-04-30] MEDS ORDERED: cefTRIAXone\\ROCEPHIN 2 GM in Sodium Chloride 0.9% 100 ML IVPB ONE (20:45)
[2017-04-30] MEDS ORDERED: Vancomycin HCl 750 MG in Sodium Chloride 0.9% 250 ML 250 ML IVPB ONE (21:00)
--- NOTE | 2017-04-30 21:43 | PDOC.EVN ---
Event Note - Event Note Event Note: [id number] H&p Dictated 1. Sepsis 2. uti 3. htn 4. dm type 2 5. H/O Lung ca 6. hyponatremia plan: see orders
[2017-04-30] MEDS ORDERED: Acetaminophen 325 MG TAB PO PRN (23:50)
[2017-04-30] MEDS ORDERED: Ondansetron HCl/PF 4 MG/2 ML Vial IVP PRN (23:50)
[2017-04-30] MEDS ORDERED: HYDROcodone/Acetaminophen 5/325 mg Tablet PO PRN (23:50)
[2017-04-30] MEDS ORDERED: Dextrose 5% in Water 1,000 ML IV PRN (23:57)
[2017-04-30] MEDS ORDERED: Dextrose 50% Abboject 50 ML SYRINGE SLOW IVP PRN (23:57)
[2017-04-30] MEDS ORDERED: HumaLOG 300 UNITS/3 ML VIAL SC PRN ×2 (23:57)
[2017-05-01 00:03] VITALS: BMI 16.9
[2017-05-01] MEDS: Sodium Chloride 0.9% 1,000 ML IV SCH ×4 (00:15→23:53)
--- NOTE | 2017-05-01 05:54 | HP ---
DATE OF ADMISSION: 04/30/2017 CHIEF COMPLAINT: Decreased p.o. intake, vomiting, cough, chest congestion. HISTORY OF PRESENT ILLNESS: Patient is an 81-year-old male with past medical history of right-sided lung cancer, hypertension, prostate CA, currently on chemotherapy, last chemotherapy was on last , now came to the ER because of decreased p.o. intake. The patient was not eating and drinking well for the past 3 days. The patient started having some sort of vomiting also. The patient did fi ashley his chemo last week, but since then he was weak, but decreased p.o. intake persisted, so he was brought to the ER. Patient also complains of some cough and chest congestion. Denies any diarrhea, denies any bloody stools, complaints of chest pain all over the body. Mild in intensity. Denies any dizziness. Denies any lightheadedness. Denies any headache. Denies any palpitations. PAST MEDICAL HISTORY: As per HPI. PAST SURGICAL HISTORY: Appendectomy, MediPort placement, bronchoscopy. SOCIAL HISTORY: Denies smoking, denies alcohol, denies any drugs. FAMILY HISTORY: Denies any heart problems. REVIEW OF SYSTEMS: Constitutional: Positive for fatigue. Positive for body aches. Eyes: Denies any vision problems. Ears: Denies any hearing loss. Neck: Denies any neck pain. Cardiovascular: Positive for chest p ain. Respiratory: Positive for cough and chest congestion. Genitourinary: Positive for dysuria. Musculoskeletal: Denies any joint deformities. Integumentary: Denies any rash. Cranial nerves: D enies syncope, denies lightheadedness. Psychiatric: Denies anxiety. All other review of systems ar e reviewed and are negative. PHYSICAL EXAMINATION: CONSTITUTIONAL/VITAL SIGNS: At the time of H&P performed, blood pressure is 106/62, pulse ox 100%, h eart rate 104. GENERAL: The patient appears tired. Anterior nares patent. HEENT: Nose normal. Ears normal. Teeth intact. Tongue is moist. NECK: Supple. No JVD. CARDIOVASCULAR: S1, S2 present. Regular rate and rhythm. No murmurs, no rubs, no gallops. RESPIRATORY: Diminished at the bases. Positive for rhonchi, no accessory muscles seen. GASTROINTESTINAL: Abdomen is soft, nontender, no guarding, no organomegaly, no masses felt. MUSCULOSKELETAL: No edema. INTEGUMENTARY: No rashes seen. PSYCHIATRIC: Mood appropriate at this time. CRANIAL NERVE SYSTEM: Cranial nerves intact. Follows commands. Strength intact, sensory intact. LABORATORY DATA: At the time of H&P performed, sodium 129, potassium 3.6, chloride 99, CO2 of 20, BU N of 9, creatinine 0.76, lactic acid 2.5, creatinine kinase 22, serum total protein 6.9, albumin 3.6. White count 3.9, hemoglobin 9.9, platelet count is 130. UA positive for nitrites, 11-20 WBCs, 2+ b acteria. Chest x-ray, chronic changes. ASSESSMENT AND PLAN: The patient is a 81-year-old male. 1. Urinary tract infection. Plan to start patient on broad spectrum antibiotics. Plan to monitor t he patient closely. We will admit patient to oncology floor. 2. History of hypertension. Monitor blood pressure, hold blood pressure medications at this time be cause of blood pressure is on the low side. 3. Sepsis secondary to urinary tract infection. Continue IV antibiotics. We will go ahead and do b lood cultures and urine culture and sensitivity. Repeat labs in a.m. 4. History of right lung carcinoma and is status post . We will go ahead and consult Oncology to evaluate the patient and we will monitor the patient. 5. Diabetes type 2. Monitor blood sugars. We will do insulin sliding scale. The case was discussed in detail with the patient and patient's also.
[2017-05-01] MEDS: Piperacillin/Tazobactam 3.375 GM in Sodium Chloride 0.9% 100 ML IVPB SCH ×5 (06:09→23:52)
[2017-05-01 06:31] LABS: ALT (SGPT) 14 U/L (8-55); AST (SGOT) 29 U/L (5-34); Alkaline Phosphatase 45 U/L (40-150); Anion Gap 14 mmol/L (10-20); BUN (Urea Nitrogen) 7 mg/dL (8.4-25.7); Bilirubin, Total 0.4 mg/dL (0.2-1.2); Calc. Creatinine Clearance 67 mL/min (70-130); Calcium 8.5 mg/dL (7.8-10.44); Carbon Dioxide 17 mmol/L (23-31); Chloride 106 mmol/L (98-107); Estimated GFR-MDRD Greater than 90; Globulin 2.9 g/dL (2.4-3.5); Protein, Total 5.7 g/dL (5.8-8.1)
[2017-05-01 06:41] LABS: Band 10 % (5-11); Mean Platelet Volume 7.7 fL (7.4-10.4); Metamyelocyte 1 % (0-0); Neutrophil 44 % (42-75); White Blood Cell (WBC) Count 2.4 thou/uL (4.8-10.8)
[2017-05-01] MEDS: Dexamethasone 4 MG TAB PO SCH (08:19)
[2017-05-01] MEDS: Heparin 5,000 UNITS/ML VIAL SC SCH ×3 (08:19→20:40)
[2017-05-01] MEDS: Tamsulosin HCl 0.4 MG CAP PO SCH ×2 (08:19→20:39)
[2017-05-01] MEDS: Folic Acid 1 MG TAB PO SCH (08:19)
--- NOTE | 2017-05-01 11:47 | PDOC.PN ---
- Subjective Encounter Start Date: 05/01/17 Encounter Start Time: 09:15 Subjective: no nausea or vomiting -: feels better, is hungry and wants to eat - Objective MAR Reviewed: Yes Vital Signs & Weight: Vital Signs (12 hours) Temp Pulse Resp BP Pulse Ox 05/01/17 11:29 98.5 F 101 H 16 90/47 L 99 05/01/17 08:18 98.1 F 94 16 92/55 L 97 05/01/17 08:00 98.1 F 94 16 05/01/17 06:00 98.0 F 99 18 97 05/01/17 00:15 97.9 F 99 18 99 05/01/17 00:00 97.9 F 99 18 100/58 L 100 04/30/17 23:50 97.9 F 99 16 100/58 L 100 Weight Weight 115 lb 1.301 oz Result Diagrams: 05/01/17 04:28 05/01/17 04:28 Additional Labs: Accuchecks 05/01/17 05/01/17 05:20 00:49 POC Glucose 84 99 Phys Exam - Physical Examination HEENT: PERRLA, moist MMs Neck: no JVD, supple Respiratory: no wheezing, no rales Cardiovascular: RRR, no significant murmur Gastrointestinal: soft, non-tender, positive bowel sounds Musculoskeletal: pulses present Neurological: non-focal, moves all 4 limbs Psychiatric: A&O x 3 Dx/Plan (1) Hyponatremia Code(s): E87.1 - HYPO-OSMOLALITY AND HYPONATREMIA Status: Acute (2) Metabolic acidosis Code(s): E87.2 - ACIDOSIS Status: Acute (3) UTI (urinary tract infection) Status: Acute Qualifiers: Urinary tract infection type: acute cystitis Hematuria presence: without hematuria Qualified Code(s): N30.00 - Acute cystitis without hematuria (4) COPD (chronic obstructive pulmonary disease) Status: Chronic Qualifiers: COPD type: chronic bronchitis (5) Chronic anemia Code(s): D64.9 - ANEMIA, UNSPECIFIED Status: Chronic (6) Hyperlipidemia Code(s): E78.5 - HYPERLIPIDEMIA, UNSPECIFIED Status: Chronic Qualifiers: Hyperlipidemia type: unspecified Qualified Code(s): E78.5 - Hyperlipidemia , unspecified Comment: New diagnosis (7) H/O malignant neoplasm of prostate Code(s): Z85.46 - PERSONAL HISTORY OF MALIGNANT NEOPLASM OF PROSTATE Status: Chronic (8) Lung cancer Code(s): C34.90 - MALIGNANT NEOPLASM OF UNSP PART OF UNSP BRONCHUS OR LUNG Status: Chronic (9) Malnutrition Code(s): E46 - UNSPECIFIED PROTEIN-CALORIE MALNUTRITION Status: Chronic Qualifiers: Malnutrition type: protein-calorie malnutrition Protein-calorie malnutrition severity: moderate Qualified Code(s): E44.0 - Moderate protein- calorie malnutrition - Plan start oral diet -: is on zosyn and gentle iv hydration -: to mobilize as tolerated -: on casodez for prostate cancer -: glucerna 1 can bid * . Review of Systems - Medications/Allergies Allergies/Adverse Reactions: Allergies Allergy/AdvReac Type Severity Reaction Status Date / Time No Known Allergies Allergy Verified 04/30/17 23:53 Medications: Current Medications Acetaminophen (Tylenol) 650 mg PO Q4H PRN PRN Reason: Headache/Fever or Pain Hydrocodone Bitart/Acetaminophen ([place] 5/325) 1 tab PO Q4H PRN PRN Reason: Moderate Pain (4-6) Dexamethasone (Decadron) 4 mg PO DAILY [facility] Last Admin: 05/01/17 08:19 Dose: 4 mg Dextrose/Water (Dextrose 50%) 25 gm SLOW IVP PRN PRN PRN Reason: Hypoglycemia Folic Acid (Folvite) 1 mg PO DAILY [facility] Last Admin: 05/01/17 08:19 Dose: 1 mg Glucagon (Glucagon) 1 mg IM PRN PRN PRN Reason: Hypoglycemia Heparin Sodium (Porcine) (Heparin) 5,000 units SC TID [facility] Last Admin: 05/01/17 08:19 Dose: 5,000 units Dextrose/Water (D5w) 1,000 mls @ 0 mls/hr IV .Q0M PRN; As Directed PRN Reason: Hypoglycemia Sodium Chloride (Normal Saline 0.9%) 1,000 mls @ 75 mls/hr IV .[id number] [facility] Last Admin: 05/01/17 00:15 Dose: 1,000 mls Piperacillin Sod/Tazobactam (Sod 3.375 gm/ Sodium Chloride) 100 mls @ 200 mls/ hr IVPB Q6HR [facility] Last Admin: 05/01/17 06:09 Dose: 100 mls Insulin Detemir 20 units/ (Miscellaneous Medication) 0.2 mls @ 0 mls/hr SC HS RAKEL PRN Reason: As Directed Insulin Human Lispro (Humalog) 0 units SC .MODERATE SLIDING SC PRN PRN Reason: Moderate Correctional Scale Insulin Human Lispro (Humalog) 0 units SC .BEDTIME SLIDING SC PRN PRN Reason: Bedtime Correctional Scale Ondansetron HCl (Zofran) 4 mg IVP Q6H PRN PRN Reason: Nausea/Vomiting Sodium Chloride (Flush - Normal Saline) 10 ml IVF Q12HR [facility] Last Admin: 05/01/17 08:19 Dose: Not Given Sodium Chloride (Flush - Normal Saline) 10 ml IVF PRN PRN PRN Reason: Saline Flush Tamsulosin HCl (Flomax) 0.4 mg PO BID [facility] Last Admin: 05/01/17 08:19 Dose: 0.4 mg
--- NOTE | 2017-05-01 17:07 | CON ---
DATE OF CONSULTATION: 05/01/2017 REASON FOR CONSULTATION: Lung cancer. HISTORY OF PRESENT ILLNESS: Mr. 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 He is currently undergoing treatment with Alimta chemotherapy. His last dose was on 04/25/2017. He also has a history of prostate cancer on monthly Lupron. Over the past few days, he has gotten progressively weak and presented to the Emergency Room for evaluation. His WBCs were 3.9 on admission with 60% neutrophils and 32% lymphocytes. His urine showed 2+ bacteria with positive for nitrites and leukocyte esterase. He was admitted for sepsis and urinary tract infection. He was started on IV antibiotics and IV fluids. He has improved over the past 24 hours. Currently, he denies any headache, chest pain or shortness of breath. No nausea, vomiting, diarrhea or constipation. No dysuria. PAST MEDICAL HISTORY: 1. Stage IIIA adenocarcinoma of the lung. 2. Prostate cancer. 3. Smoking 4. Newly diagnosed DM2 PAST SURGICAL HISTORY: 1. Appendectomy. 2. Bronchoscopy. 3. MediPort placement. ALLERGIES: No known drug allergies. HOME MEDICATIONS: 1. Casodex 50 mg daily. 2. Flomax 0.4 mg daily. 3. Megestrol 10 mg b.i.d. 4. Metformin 1000 mg daily. 5. Vitamin B 500 mcg daily. FAMILY HISTORY: Father had an unknown type of cancer. SOCIAL HISTORY: , lives with his significant other. Current every day smoker. No alcohol or illicit drug use. REVIEW OF SYSTEMS: Twelve point review of systems is negative except for noted in HPI. PHYSICAL EXAMINATION: VITAL SIGNS: Temperature is 98.5, pulse is 101, respiratory rate 16, BP is 90/ 47. He is 99% on room air. GENERAL: A thin -[place] male in no acute distress. HEENT: Normocephalic, atraumatic. Pupils equal and reactive to light. NECK: Supple. CARDIOVASCULAR: Regular rate and rhythm. LUNGS: Clear. ABDOMEN: Soft, nontender, bowel sounds are positive. EXTREMITIES: No clubbing, cyanosis or edema. SKIN: No rash. NEUROLOGIC: Nonfocal. PSYCHIATRIC: The patient is alert and oriented and appropriate. PERTINENT LABORATORY DATA AND X-RAYS: Current WBC is 2.4, hemoglobin 8.9, hematocrit 28.0, platelet count 107,000, and 44% neutrophils, 10% bands, 44% lymphocytes. Sodium is 133, potassium 4.0, chloride 106, CO2 17, BUN 7, creatinine 0.64. Lactic acid is 1.2, calcium 8.5. Metformin 0.4, AST is 29, ALT 14, alkaline phosphatase 45. CK-MB is 0.7. Troponin is negative. Serum total protein is 5.7, albumin 2.8, globulin 2.9. Urine showed 2+ bacteria. IMPRESSION: 1. Urinary tract infection. 2. Lung cancer with recent chemotherapy on 04/25/2017. DISCUSSION: The patient has been started on IV fluids and antibiotics and has showed improvement since admission. He was recently diagnosed with diabetes type 2 and started on metformin. This has been held while he is an inpatient. I expect his neutrophils to drop over the next few days. We will provide supportive care. Thank you for the consult. RONI
[2017-05-01] MEDS ORDERED: Insulin Detemir 100 UNITS/ML 20 UNITS in Pre-Filled Syringe 1 EACH SC SCH (21:00)
[2017-05-02] MEDS: Piperacillin/Tazobactam 3.375 GM in Sodium Chloride 0.9% 100 ML IVPB SCH ×3 (05:30→18:12)
[2017-05-02 06:23] LABS: BUN (Urea Nitrogen) 5 mg/dL (8.4-25.7); Calc. Creatinine Clearance 64 mL/min (70-130); Carbon Dioxide 15 mmol/L (23-31); Chloride 108 mmol/L (98-107); Estimated GFR-MDRD Greater than 90
[2017-05-02 06:26] LABS: Anion Gap 14 mmol/L (10-20)
[2017-05-02] MEDS: Folic Acid 1 MG TAB PO SCH (08:44)
[2017-05-02] MEDS: Heparin 5,000 UNITS/ML VIAL SC SCH ×2 (08:44→20:21)
[2017-05-02] MEDS: Tamsulosin HCl 0.4 MG CAP PO SCH ×2 (08:44→20:20)
[2017-05-02] MEDS: Dexamethasone 4 MG TAB PO SCH (08:44)
[2017-05-02 09:47] LABS: #Monocytes 0.3 thou/uL (0.11-0.59); #Neutrophils 0.9 thou/uL (1.40-6.50); %Basophils 0.9 % (0.0-1.0); %Eosinophils 1.8 % (0.0-10.0); %Lymphocytes 44.2 % (21.0-51.0); %Monocytes 12.6 % (0.0-10.0); Hematocrit 24.9 % (42.0-52.0); Mean Platelet Volume 7.4 fL (7.4-10.4); Red Blood Cell (RBC) Count 2.65 mill/uL (4.70-6.10); White Blood Cell (WBC) Count 2.2 thou/uL (4.8-10.8)
--- NOTE | 2017-05-02 14:07 | PDOC.PN ---
- Subjective Encounter Start Date: 05/02/17 Encounter Start Time: 11:30 Subjective: no sob or nausea, no cough -: is sitting in chair - Objective MAR Reviewed: Yes Vital Signs & Weight: Vital Signs (12 hours) Temp Pulse Resp BP Pulse Ox 05/02/17 07:57 97.3 F L 118 H 16 103/64 100 Weight Admit Weight 115 lb 1.296 oz Weight 115 lb 1.296 oz I&O: 05/01/17 05/02/17 05/03/17 06:59 06:59 06:59 Intake Total 3550 480 Output Total 1600 Balance 1950 480 Result Diagrams: 05/02/17 06:58 05/02/17 05:28 Additional Labs: Accuchecks 05/02/17 05/02/17 05/01/17 11:32 05:12 20:20 POC Glucose 139 H 100 166 H 05/01/17 16:53 POC Glucose 156 H Phys Exam - Physical Examination HEENT: PERRLA, moist MMs Neck: no JVD, supple Respiratory: no wheezing, no rales Cardiovascular: RRR, no significant murmur Gastrointestinal: soft, non-tender, positive bowel sounds Musculoskeletal: no edema, pulses present Neurological: non-focal, moves all 4 limbs Dx/Plan (1) Hyponatremia Code(s): E87.1 - HYPO-OSMOLALITY AND HYPONATREMIA Status: Acute (2) Metabolic acidosis Code(s): E87.2 - ACIDOSIS Status: Acute (3) UTI (urinary tract infection) Status: Acute Qualifiers: Urinary tract infection type: acute cystitis Hematuria presence: without hematuria Qualified Code(s): N30.00 - Acute cystitis without hematuria (4) COPD (chronic obstructive pulmonary disease) Status: Chronic Qualifiers: COPD type: chronic bronchitis (5) Chronic anemia Code(s): D64.9 - ANEMIA, UNSPECIFIED Status: Chronic (6) Hyperlipidemia Code(s): E78.5 - HYPERLIPIDEMIA, UNSPECIFIED Status: Chronic Qualifiers: Hyperlipidemia type: unspecified Qualified Code(s): E78.5 - Hyperlipidemia , unspecified Comment: New diagnosis (7) H/O malignant neoplasm of prostate Code(s): Z85.46 - PERSONAL HISTORY OF MALIGNANT NEOPLASM OF PROSTATE Status: Chronic (8) Lung cancer Code(s): C34.90 - MALIGNANT NEOPLASM OF UNSP PART OF UNSP BRONCHUS OR LUNG Status: Chronic (9) Malnutrition Code(s): E46 - UNSPECIFIED PROTEIN-CALORIE MALNUTRITION Status: Chronic Qualifiers: Malnutrition type: protein-calorie malnutrition Protein-calorie malnutrition severity: moderate Qualified Code(s): E44.0 - Moderate protein- calorie malnutrition - Plan await cultures -: gentle hydration -: on zosyn, nebs -: replace electrolytes -: dc plan in am if stable * . Review of Systems - Medications/Allergies Allergies/Adverse Reactions: Allergies Allergy/AdvReac Type Severity Reaction Status Date / Time No Known Allergies Allergy Verified 04/30/17 23:53 Medications: Current Medications Acetaminophen (Tylenol) 650 mg PO Q4H PRN PRN Reason: Headache/Fever or Pain Hydrocodone Bitart/Acetaminophen ([place] 5/325) 1 tab PO Q4H PRN PRN Reason: Moderate Pain (4-6) Dexamethasone (Decadron) 4 mg PO DAILY [facility] Last Admin: 05/02/17 08:44 Dose: 4 mg Dextrose/Water (Dextrose 50%) 25 gm SLOW IVP PRN PRN PRN Reason: Hypoglycemia Folic Acid (Folvite) 1 mg PO DAILY [facility] Last Admin: 05/02/17 08:44 Dose: 1 mg Glucagon (Glucagon) 1 mg IM PRN PRN PRN Reason: Hypoglycemia Heparin Sodium (Porcine) (Heparin) 5,000 units SC BID [facility] Last Admin: 05/02/17 08:44 Dose: Not Given Dextrose/Water (D5w) 1,000 mls @ 0 mls/hr IV .Q0M PRN; As Directed PRN Reason: Hypoglycemia Piperacillin Sod/Tazobactam (Sod 3.375 gm/ Sodium Chloride) 100 mls @ 200 mls/ hr IVPB Q6HR [facility] Last Admin: 05/02/17 12:22 Dose: 100 mls Sodium Chloride (Normal Saline 0.9%) 1,000 mls @ 100 mls/hr IV .Q10H [facility] Last Admin: 05/01/17 23:53 Dose: 1,000 mls Insulin Human Lispro (Humalog) 0 units SC .MODERATE SLIDING SC PRN PRN Reason: Moderate Correctional Scale Insulin Human Lispro (Humalog) 0 units SC .BEDTIME SLIDING SC PRN PRN Reason: Bedtime Correctional Scale Ondansetron HCl (Zofran) 4 mg IVP Q6H PRN PRN Reason: Nausea/Vomiting Sodium Chloride (Flush - Normal Saline) 10 ml IVF Q12HR [facility] Last Admin: 05/02/17 08:45 Dose: Not Given Sodium Chloride (Flush - Normal Saline) 10 ml IVF PRN PRN PRN Reason: Saline Flush Tamsulosin HCl (Flomax) 0.4 mg PO BID [facility] Last Admin: 05/02/17 08:44 Dose: 0.4 mg
[2017-05-02] MEDS: Sodium Chloride 0.9% 1,000 ML IV SCH (14:12)
[2017-05-03] MEDS: Sodium Chloride 0.9% 1,000 ML IV SCH (00:07)
[2017-05-03] MEDS: Piperacillin/Tazobactam 3.375 GM in Sodium Chloride 0.9% 100 ML IVPB SCH ×2 (00:07→05:06)
[2017-05-03 06:49] LABS: #Eosinphils 0.1 thou/uL (0.0-0.7); #Lymphocytes 0.9 thou/uL (1.20-3.40); #Monocytes 0.3 thou/uL (0.11-0.59); #Neutrophils 0.9 thou/uL (1.40-6.50); %Eosinophils 2.9 % (0.0-10.0); %Lymphocytes 42.4 % (21.0-51.0); %Monocytes 14.5 % (0.0-10.0); Anion Gap 13 mmol/L (10-20); BUN (Urea Nitrogen) 4 mg/dL (8.4-25.7); Calc. Creatinine Clearance 60 mL/min (70-130); Calcium 8.1 mg/dL (7.8-10.44); Carbon Dioxide 20 mmol/L (23-31); Chloride 107 mmol/L (98-107); Estimated GFR-MDRD Greater than 90; Hematocrit 25.3 % (42.0-52.0); Mean Platelet Volume 7.4 fL (7.4-10.4); White Blood Cell (WBC) Count 2.2 thou/uL (4.8-10.8)
[2017-05-03] MEDS: Tamsulosin HCl 0.4 MG CAP PO SCH (08:42)
[2017-05-03] MEDS: Dexamethasone 4 MG TAB PO SCH (08:42)
[2017-05-03] MEDS: Folic Acid 1 MG TAB PO SCH (08:42)
[2017-05-03] MEDS: Heparin 5,000 UNITS/ML VIAL SC SCH (08:43)
--- NOTE | 2017-05-03 10:21 | PQF ---
CLINICAL DOCUMENTATION IMPROVEMENT CLARIFICATION FORM: ICD-10 Updated PLEASE DO AN ADDENDUM TO THE PROGRESS NOTE WITH ANY DOCUMENTATION UPDATES OR ADDITIONS AND CARRY THROUGH TO DC SUMMARY. THANK YOU. DATE: 05/03/17 ATTN: HOMERO MOSES Please exercise your independent, professional judgment in responding to the clarification form. Clinical indicators are provided on the bottom of this form for your review Please check appropriate box(s) to clarify if the following diagnosis has been ruled in our ruled out: "SEPSIS" [ x ] Ruled in diagnosis [ ] Continue to treat [ x ] Resolved [ ] Ruled out diagnosis [ ] Cannot rule out diagnosis [ ] Other diagnosis [ ] Unable to determine In addition, please specify: Present on Admission (POA): [x ] Yes [ ] No [ ] Unable to determine For continuity of documentation, please document condition throughout progress notes and discharge summary. Thank You. CLINICAL INDICATORS - SIGNS / SYMPTOMS / LABS ER NOTE :"ACUTE SEPSIS" H&P: "SEPSIS SECONDARY TO URINARY TRACT INFECTION" CONSULTATION NOTE 05/01: "HE WAS ADMITTED FOR SEPSIS AND URINARY TRACT INFECTION. " PULSE 127 BP 99/55 RISKS: UTI TREATMENT: IV VANCOMYCIN (ER) IV ROCEPHIN (ER) BLOOD CULTURES URINE CULTURES (This form is maintained as a part of the permanent medical record) [employer] Win[employer] Viewer 2015 [employer]. All Rights Reserved [place] [email or web address] Office: [phone] RONI
[2017-05-03 11:31] VITALS: BP 149/78; TEMP 97.5
--- NOTE | 2017-05-03 13:23 | PDOC.PN ---
- Subjective Encounter Start Date: 05/03/17 Encounter Start Time: 08:35 Subjective: awake, feels good, wants to go home - Objective MAR Reviewed: Yes Vital Signs & Weight: Vital Signs (12 hours) Temp Pulse Resp BP BP Pulse Ox 05/03/17 11:28 97.5 F L 81 22 H 149/78 H 98 05/03/17 08:42 98.0 F 81 16 121/68 98 05/03/17 08:00 98.0 F 81 16 121/68 98 Weight Admit Weight 115 lb 1.296 oz Weight 115 lb 1.296 oz I&O: 05/02/17 05/03/17 05/04/17 06:59 06:59 06:59 Intake Total 3550 2330 Output Total 1600 2660 Balance 1950 -330 Result Diagrams: 05/03/17 05:45 05/03/17 05:45 Additional Labs: Accuchecks 05/03/17 05/03/17 05/02/17 11:01 05:24 20:41 POC Glucose 122 H 101 82 05/02/17 16:25 POC Glucose 146 H Phys Exam - Physical Examination HEENT: PERRLA, moist MMs Neck: no JVD, supple Respiratory: no wheezing, no rales Cardiovascular: RRR, no significant murmur Gastrointestinal: soft, non-tender, positive bowel sounds Musculoskeletal: no edema, pulses present Neurological: non-focal, moves all 4 limbs Dx/Plan (1) Hyponatremia Code(s): E87.1 - HYPO-OSMOLALITY AND HYPONATREMIA Status: Resolved (2) Metabolic acidosis Code(s): E87.2 - ACIDOSIS Status: Acute (3) UTI (urinary tract infection) Status: Acute Qualifiers: Urinary tract infection type: acute cystitis Hematuria presence: without hematuria Qualified Code(s): N30.00 - Acute cystitis without hematuria (4) COPD (chronic obstructive pulmonary disease) Status: Chronic Qualifiers: COPD type: chronic bronchitis (5) Chronic anemia Code(s): D64.9 - ANEMIA, UNSPECIFIED Status: Chronic (6) Hyperlipidemia Code(s): E78.5 - HYPERLIPIDEMIA, UNSPECIFIED Status: Chronic Qualifiers: Hyperlipidemia type: unspecified Qualified Code(s): E78.5 - Hyperlipidemia , unspecified Comment: New diagnosis (7) H/O malignant neoplasm of prostate Code(s): Z85.46 - PERSONAL HISTORY OF MALIGNANT NEOPLASM OF PROSTATE Status: Chronic (8) Lung cancer Code(s): C34.90 - MALIGNANT NEOPLASM OF UNSP PART OF UNSP BRONCHUS OR LUNG Status: Chronic (9) Malnutrition Code(s): E46 - UNSPECIFIED PROTEIN-CALORIE MALNUTRITION Status: Chronic Qualifiers: Malnutrition type: protein-calorie malnutrition Protein-calorie malnutrition severity: moderate Qualified Code(s): E44.0 - Moderate protein- calorie malnutrition - Plan hemo/neuro stable -: dc pt home -: d/w over phone and gave an update * .
--- NOTE | 2017-05-03 15:21 | DIS ---
DATE OF ADMISSION: 04/30/2017 DATE OF DISCHARGE: 05/03/2017 DISCHARGE DISPOSITION: To home. PRIMARY DISCHARGE DIAGNOSES: Sepsis secondary to urinary tract infection; hyponatremia and metabolic acidosis, both resolving. SECONDARY DISCHARGE DIAGNOSES: Chronic obstructive pulmonary disease, chronic anemia, dyslipidemia, history of lung cancer, history of prostate cancer, and malnutrition. PROCEDURES DONE DURING HOSPITALIZATION: Chest x-ray done showed no acute infiltrate, has chronic changes due to his lung cancer. The patient had 2 sets of blood cultures done which did not grow any organism. Initial urine culture drawn on 04/12/2017 was contaminated. Repeat urine culture on showed no growth. Urinalysis done on the day of admission showed positive nitrite, small leukocyte esterase with 11-20 wbc's and 2+ bacteria. Hemoglobin and hematocrit 8.6 and 25 on the day of discharge, white count of 2.2, platelet count is 80. Initial sodium level of 129. One set of cardiac enzymes were negative. DISCHARGE MEDICATIONS: Levaquin 500 mg p.o. daily for another 5 days, Megace 40 mg p.o. daily, Flomax 0.4 mg p.o. daily, folic acid 1 mg p.o. daily, Decadron 4 mg p.o. q.12 hourly, Casodex 50 mg p.o. daily, Tylenol #3 q.6 hourly 1-2 tablets p.r.n. for pain. ALLERGIES: No known drug allergies. INPATIENT CONSULT: Ms. Melvina Wagoner, nurse practitioner for Oncology. BRIEF COURSE DURING HOSPITALIZATION: The patient initially was brought to the emergency room as he was not eating or drinking well for past 3 days. He has had decreased oral intake along with vomiting, cough, and chest congestion. He initially had low systolic blood pressures in the 90s. As patient is on chemotherapy for his lung cancer, patient was admitted for UTI with sepsis and being immunocompromised. He was on broad spectrum IV antibiotics and has been switched over to Levaquin. Nuñez cultures have been negative so far. He has responded well to fluid resuscitation. His electrolytes have been corrected. This morning, he is eating and ambulating in the room. He is wanting to go home. I have given complete updates to his . He needs followup with his oncologist as advised and primary care physician in 1 week. Please see a face to face documentation on [facility] for the day of discharge [facility]
--- NOTE | 2017-05-05 13:38 | EKG ---
Test Reason : Blood Pressure : / mmHG Vent. Rate : 109 BPM Atrial Rate : 109 BPM P-R Int : 148 ms QRS Dur : 068 ms QT Int : 312 ms P-R-T Axes : 066 034 055 degrees QTc Int : 420 ms Sinus tachycardia Possible Acute pericarditis Abnormal ECG Confirmed by REINALDO FLORES, CHAZ Irving ([id number]), state editor LIT VEGA ([id number]) on 05/05/2017 1:37:48 PM Referred By: Confirmed By:CHAZ NAJERA MD
--- NOTE | 2017-05-07 13:09 | PQF ---
HERSON TREVINO VINAYA KUMAR MD [id number] CLINICAL DOCUMENTATION CLARIFICATION FORM: POST DISCHARGE Please clarify if documented "hemoglobin and hematocrit 8.6 and 25 on day of discharge, white count 2.2, platelet count 80.", can be further specified. ONC CONSULT; "Non small cell lung cancer with recent chemotherapy on 2016. He has a history of prostate cancer on monthly Lupron. ONC PN; Neutropenia DC SUMMARY; "UTI with Sepsis and being Immunocompromised, chronic anemia." LAB; 04/30; RBC 3.18 / Hemoglobin 9.9 / Hematocrit 30.0 / Platelet count 130 / WBC 3.9 LAB;05/02; RBC 2.65 / Hemoglobin 8.0 / Hematocrit 24.9 / Platelet count 97 / WBC 2.2 LAB:05/03; RBC 2.70 / Hemoglobin 8.6 / Hematocrit 25.3/ Platelet count 80 / WBC 2.2 Please exercise your independent, professional judgment in responding to the clarification form. Clinical indicators are provided on the bottom of this form for your review. Thank you. Please check appropriate box(s): Pancytopenia due to: [ x ] Chemotherapy/antineoplastic drugs [ ] Other drug-induced (please specify if known): [ ] Congenital [ ] Neutropenia due to: [ ] Anemia due to: [ ] Other diagnosis [ ] Unable to determine In addition, please specify: Present on Admission (POA): [ ] Yes [ ] No [ ] Unable to determine CLINICAL INDICATORS - SIGNS / SYMPTOMS / LABS Decreased WBC Decreased RBC / decreased H/H Decreased PLT Fever Generalized weakness RISK FACTORS Cancer HIV Chemotherapy Drugs Myelodysplastic Syndrome TREATMENT: Transfusions Stop meds causing Pancytopenia Bone marrow biopsy (This form is maintained as a part of the permanent medical record) 2014 [employer]. All Rights Reserved CHRIS [email or web address] [phone] RONI
== END 2017-05-03 11:37 | disposition home health service (06) | DRG 871 ==
LOC: ERS 14:11 → ERHOLD 21:12 → T4-B 23:28
PROVIDERS: ADMIT Internal Medicine; ATTEND Internal Medicine
DX: A41.9 Sepsis, unspecified organism (principal); D61.810 Antineoplastic chemotherapy induced pancytopenia; E44.0 Moderate protein-calorie malnutrition; E87.2 Acidosis; C34.11 Malignant neoplasm of upper lobe, right bronchus or lung; J44.9 Chronic obstructive pulmonary disease, unspecified; T45.1X5A Adverse effect of antineoplastic and immunosuppressive drugs, initial encounter; N30.00 Acute cystitis without hematuria; E87.1 Hypo-osmolality and hyponatremia; Z68.1 Body mass index [BMI] 19.9 or less, adult; I10 Essential (primary) hypertension; D70.9 Neutropenia, unspecified; C61 Malignant neoplasm of prostate; E78.5 Hyperlipidemia, unspecified; E11.9 Type 2 diabetes mellitus without complications; F17.210 Nicotine dependence, cigarettes, uncomplicated
CPT/HCPCS: 36415; 36416; 71010; 80048; 80053; 81003; 81015; 82550; 82553; 83605; 83690; 84484; 85025; 87086; 93005; 96361; 96365; 96367; A4216; J0696; J1644; J1815; J2543; J3370; J7050; J8540

== ENCOUNTER 2017-05-10 23:11 | Observation (INO) | payer MEDICARE, MEDICAID ==
--- NOTE | 2017-05-11 01:11 | HP ---
DATE OF ADMISSION: 05/10/2017 Patient was seen and examined on 05/10/2017 in the emergency room. CHIEF COMPLAINT: Generalized weakness with poor appetite. 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 He was transferred to this facility for hospital admission. He was discharged from this facility approximately a week ago. Over the last 2-3 days, the patient has been feeling generally weak and tired. He has not been eatin g and drinking as well. He feels generally weak and fatigued. He denies any chest pain, palpitation s, lightheadedness, dizziness, diaphoresis, nausea, vomiting, diarrhea, or constipation. Last bowel movement was approximately 2 days ago. He denies any abdominal pain, dysuria, hematuria, or urgency. He completed Levaquin that was prescribed for UTI. He did not take any of his medications in the l ast 24 hours including dexamethasone. In the emergency room at [facility], his initial vital signs showed temperature of 97.5 with blood pressure of 83/50 with pulse rate of 124, respiration of 20. EKG showed sinus tachycardia without si gnificant ST-T wave changes. Chest x-ray was negative. Urinalysis showed 4-6 wbc's without any bact eria. Blood and urine cultures were sent from [facility]. He received 2 liters IV fluid in the em ergency room with good improvement in his heart rate. He was subsequently transferred to this facili ty for admission. His lactic acid was 3.0. PAST MEDICAL HISTORY: 1. Recent hospitalization for sepsis secondary to urinary tract infection discharged on 05/03/2017. 2. Stage IIIA adenocarcinoma of the lung. 3. Prostate cancer. 4. Ongoing tobacco abuse. 5. Diabetes mellitus, type 2 diagnosed last month. PAST SURGICAL HISTORY: 1. Appendectomy 2. Bronchoscopy. 3. MediPort placement. ALLERGIES: No known drug allergies. CURRENT HOME MEDICATIONS: Patient did not bring any of his home medications. He does not recall any of his home medications. FAMILY HISTORY: He denies any inheritable disease in his family. Several family members with malign dedra. SOCIAL HISTORY: He smokes on and off. He is , lives with a significant other. REVIEW OF SYSTEMS: The following complete review of systems was negative, unless otherwise mentioned in the HPI or below: Constitutional: Weight loss or gain, ability to conduct usual activities. Skin: Rash, itching. Eyes: Double vision, pain. ENT/Mouth: Nose bleeding, neck stiffness, pain, tenderness. Cardiovascular: Palpitations, dyspnea on exertion, orthopnea. Respiratory: Shortness of breath, wheezing, cough, hemoptysis, fever, or night sweats. Gastrointestinal: Poor appetite, abdominal pain, heartburn, nausea, vomiting, constipation, or diarr hea. Genitourinary: Urgency, frequency, dysuria, nocturia. Musculoskeletal: Pain, swelling. Neurologic/Psychiatric: Anxiety, depression. Allergy/Immunologic: Skin rash, bleeding tendency. PHYSICAL EXAMINATION: VITAL SIGNS: As discussed above. GENERAL: An 81-year-old male, thin built, in no apparent distress. Feels generally weak and fatigue d. HEENT: Head atraumatic, normocephalic. Sclerae anicteric. Dry mucous membrane. No oral lesion. NECK: Supple. No JVD appreciated. No carotid bruit. LUNGS: Showed scattered rales at bases without any wheezing. Lungs symmetrical. HEART: S1, S2 present. Regular rate and rhythm, tachycardic, current heart rate is 100. ABDOMEN: Soft, nontender, bowel sounds present. EXTREMITIES: No edema or calf tenderness. NEUROLOGIC: Grossly nonfocal, moves all four extremities. PSYCHIATRY: Alert, awake, oriented x3. SKIN: Warm and dry. LYMPH NODES: No palpable lymph nodes in the neck. PERIPHERAL VASCULAR: Radial pulses palpable bilaterally. MUSCULOSKELETAL: No joint swelling or tenderness. SKIN: Warm and dry. LYMPH NODES: No palpable lymph nodes in the neck. LABORATORY FINDINGS: As discussed above. Lactic acid as discussed above. Sodium was 135 with potas sium of 3.4 with bicarbonate of 19, BUN 20, creatinine 1.12, anion gap was 21. EKG and chest x-ray by my review as discussed above. IMPRESSION: 1. Generalized weakness, fatigue, secondary to dehydration. Rule out infectious etiology. Cultures were sent from the emergency room in [place]. We will hold antibiotics for now. Continue IV fluid s. 2. Dehydration, plan as discussed above. 3. Hypokalemia secondary to poor oral intake. Rule out hypomagnesemia. 4. Lactic acidosis secondary to dehydration, rule out sepsis. 5. Chronic anemia. 6. Stage IIIA adenocarcinoma of the lung followed by Dr. Geiger. We will consult Dr. Geiger in a. m. 7. History of prostate cancer. We will resume Casodex. 8. Diabetes mellitus, type 2 diagnosed last month. His hemoglobin A1c last month was 10.3. We will start him on sliding scale. 9. Tobacco dependence. Patient was counseled extensively to quit smoking. 10. Chronic anemia. 11. Hyponatremia secondary to dehydration. 12. Chronic metabolic acidosis. 13. Chronic kidney disease, stage 2. 14. Code status: FULL CODE confirmed with the patient. SURROGATE DECISION MAKER: Patient makes his own decision with the help of his significant others. Dexamethasone will be resumed at 4 mg q.12 hourly based on last discharge summary. Again, exact home medications is unavailable at this time. Plan of care was discussed with the patient in detail. He stated understanding.
[2017-05-11] MEDS ORDERED: Dextrose 50% Abboject 50 ML SYRINGE SLOW IVP PRN (01:41)
[2017-05-11] MEDS ORDERED: Acetaminophen 325 MG TAB PO PRN (01:41)
[2017-05-11] MEDS ORDERED: Dextrose 5% in Water 1,000 ML IV PRN (01:41)
[2017-05-11] MEDS ORDERED: Ondansetron HCl/PF 4 MG/2 ML Vial IVP PRN (01:41)
[2017-05-11] MEDS ORDERED: Ondansetron ODT 4 MG TAB PO PRN (01:41)
[2017-05-11] MEDS ORDERED: Insulin Regular 300 UNITS/3 ML VIAL SC PRN ×2 (01:41)
[2017-05-11] MEDS ORDERED: NS 0.9% w/ 20 MEQ KCL 1,000 ML/1,000 ML BAG IV SCH (01:41)
[2017-05-11] MEDS ORDERED: Senokot 8.6 MG TAB PO PRN (01:41)
[2017-05-11] MEDS ORDERED: Dexamethasone 4 MG TAB PO SCH ×2 (02:00→08:00)
[2017-05-11 03:46] VITALS: BMI 16.6
[2017-05-11 05:57] LABS: Anion Gap 10 mmol/L (10-20); BUN (Urea Nitrogen) 15 mg/dL (8.4-25.7); BUN/Creatinine Ratio 18.75; Calc. Creatinine Clearance 52 mL/min (70-130); Calcium 8.6 mg/dL (7.8-10.44); Carbon Dioxide 24 mmol/L (23-31); Chloride 104 mmol/L (98-107); Estimated GFR-MDRD Greater than 90; Magnesium 1.1 mg/dL (1.6-2.6); Phosphorus 2.2 mg/dL (2.3-4.7)
[2017-05-11] MEDS ORDERED: Magnesium Sulfate 4 GM in Sodium Chloride 0.9% 250 ML 250 ML IVPB SCH (07:00)
[2017-05-11] MEDS: K-Phos Neutral 250 MG TAB PO SCH ×3 (08:46→17:01)
[2017-05-11] MEDS ORDERED: Docusate 100 MG CAP PO SCH (09:00)
[2017-05-11] MEDS ORDERED: Multivit, Therapeutic 1 TAB PO SCH (09:00)
[2017-05-11] MEDS ORDERED: Folic Acid 1 MG TAB PO SCH (09:00)
[2017-05-11] MEDS ORDERED: Heparin 5,000 UNITS/ML VIAL SC SCH (09:00)
[2017-05-11] MEDS ORDERED: Cyanocobalamin (Vitamin B-12) 1,000 MCG TAB PO SCH (09:00)
[2017-05-11] MEDS ORDERED: Famotidine 20 MG TAB PO SCH (09:00)
--- NOTE | 2017-05-11 10:31 | CON ---
DATE OF CONSULTATION: 05/11/2017 REASON FOR CONSULTATION: Lung cancer. HISTORY OF PRESENT ILLNESS: Mr. Salgado is an 81-year-old male with a stage IIIA adenocarcinoma of the lung and prostate cancer. He is currently undergoing androgen deprivation treatment with Lupron for his prostate cancer. He gets Alimta for his lung cancer. His last Lupron was several days ago. His last Alimta was on 04/25/2017. He presented to the emergency room in [place] with weakness and dehydration. He has received IV fluids and is feeling much better. He has struggled with poor nutrition and lack of appetite for many months. He is on Megace b.i.d. at home. His weight fluctuat es depending on how much he is eating; however, the last few weeks he has been struggling more with n utrition. He denies any shortness of breath or chest pain, no nausea, vomiting, diarrhea or constipa tion. He denies any pain at this time. He did have a CT scan for restaging in late March which s howed stable to slight improvement in his lung cancer. PAST MEDICAL HISTORY: 1. Stage IIIA adenocarcinoma of the lung. 2. Prostate cancer. 3. Tobacco use. 4. Diabetes mellitus 2. PAST SURGICAL HISTORY: 1. Appendectomy. 2. Bronchoscopy. 3. MediPort placement. ALLERGIES: No known drug allergies. HOME MEDICATIONS: 1. Casodex 50 mg daily. 2. Flomax 0.4 mg daily. 3. Megestrol 10 mg b.i.d. 4. Metformin 1000 mg daily. 5. Vitamin B12 500 mcg daily. FAMILY HISTORY: His father had cancer, unknown type of cancer. SOCIAL HISTORY: , lives with a significant other. He smokes daily. No alcohol or illicit d rug use. REVIEW OF SYSTEMS: Negative except for noted in HPI. PHYSICAL EXAMINATION: VITAL SIGNS: Temperature is 98.8, pulse is 98, respiratory rate 16, BP is 107/53. He is 98% on room air. GENERAL: A thin male in no acute distress. HEENT: Normocephalic, atraumatic. Pupils equal and reactive to light. NECK: Supple. CARDIOVASCULAR: Regular rate and rhythm. LUNGS: Clear. ABDOMEN: Soft, nontender, bowel sounds are positive. EXTREMITIES: No clubbing, cyanosis or edema. SKIN: No rash. NEUROLOGIC: The patient is alert and oriented and appropriate. PERTINENT LABORATORY AND X-RAYS: Current WBCs are 7.1, hemoglobin 9.5, hematocrit 28.2, platelet cou nt is 172,000, 62% neutrophils, 25% lymphocytes. Sodium is 135, potassium 3.4, chloride 104, CO2 is 24, BUN is 15, creatinine 0.8. Lactic acid is 0.9, calcium 8.6, phosphorus 2.2, magnesium 1.1, total protein is 6.8, albumin 2.9, globulin 3.3. Chest x-ray showed no acute process. ASSESSMENT AND PLAN: 1. Dehydration. 2. Failure to thrive. 3. Stage IIIA lung cancer. 4. Prostate cancer. DISCUSSION: The patient has received IV fluids and is feeling much better. He admits to eating his breakfast this morning with no complication. He is on dexamethasone b.i.d. for chemotherapy not on a daily basis so I will discontinue this medication. I will add his Megestrol. His electrolytes are being repleted, hopefully he can be discharged home to follow up in the clinic as scheduled for his n ext treatment. Thank you for the consult.
--- NOTE | 2017-05-11 11:24 | RAD ---
TWO VIEW ABDOMEN: TECHNIQUE: Supine and upright views obtained. HISTORY: Nausea and vomiting. FINDINGS: Scattered stool and gas are seen throughout the colon with gas to the level of the rectum. There is scattered small bowel gas which appears nonspecific. No evidence of small bowel dilatation or obstru ction identified. No mass effect or abnormal calcification. No evidence of free intraperitoneal air . IMPRESSION: Nonspecific bowel gas pattern. There is some increased small bowel gas; however, no evidence of smal l bowel dilatation identified. POS: OSCAR
[2017-05-11 15:12] LABS: Anion Gap 12 mmol/L (10-20); BUN (Urea Nitrogen) 12 mg/dL (8.4-25.7); Calc. Creatinine Clearance 54 mL/min (70-130); Calcium 8.8 mg/dL (7.8-10.44); Carbon Dioxide 23 mmol/L (23-31); Chloride 105 mmol/L (98-107); Estimated GFR-MDRD Greater than 90; Magnesium 2.6 mg/dL (1.6-2.6)
[2017-05-11 17:12] VITALS: BP 101/57; TEMP 98.2
--- NOTE | 2017-05-14 10:00 | DIS ---
PRIMARY CARE PHYSICIAN: Dr. Szymanski PRIMARY ONCOLOGIST: Dr. Vicky Geiger DATE OF ADMISSION: 05/10/2017 initial observation. DATE OF DISCHARGE: 05/11/2017 DISCHARGE DIAGNOSES: 1. Moderate dehydration secondary to decreased p.o. intake from chemotherapy. 2. Hypokalemia secondary to decreased oral intake. 3. Lactic acidosis secondary to volume contraction. 4. Chronic anemia. 5. Stage IIIA adenocarcinoma of the lung. 6. History of prostate cancer on Casodex. 7. Diabetes mellitus type 2, recent diagnosis. 8. Ongoing tobacco dependence. 9. Chronic anemia. 10. Hyponatremia. 11. Chronic kidney disease stage 2. CONSULTATIONS: Oncology with Ms. Melvina Wagoner. PROCEDURES: None. HOSPITAL COURSE: Mr. Salgado is an 81-year-old gentleman with stage IIIA lung cancer as above. He had a recent hospitalization prior to this visit for sepsis secondary to urinary tract infection. He presented to the [facility]. He had been transferred this hospital for admission and was discharged from the facility approximatel y a week prior to this stay. Over the last 2-3 days he has been feeling generally weak and tired, not eating and drinking well and came to the emergency department for evaluation. He was found to be hypotensive and tachycardic. T emperature was normal. Urinalysis was largely unremarkable. A culture was sent. He was transferred here for care. HOSPITAL COURSE: The patient was seen and examined by Dr. Vaughan in the emergency department. Electr olytes were replaced and rechecked. He was continued on dexamethasone and his regular medications. Overnight, he did well and was feeling much better after getting rehydrated and was stable for discha rge. PHYSICAL EXAMINATION: The patient was seen and examined on the day of discharge. Discharge plan and disposition was discussed with the patient face to face bedside. DISCHARGE MEDICATIONS: 1. Flomax 0.4 mg p.o. at bedtime. 2. Tylenol #3 with codeine 1-2 every 6 hours as needed. 3. Folic acid 1 mg daily. 4. Megace 40 mg daily, which he is not really taking. 5. Casodex 50 mg daily. 6. Promethazine 12.5 mg p.o. q.6 hours as needed. 7. Decadron 4 mg p.o. b.i.d. was stopped. 8. Levofloxacin was stopped at home, was stopped. FOLLOWUP APPOINTMENTS: 1. Primary care physician within a week. 2. Oncology as the next scheduled visit. DISCHARGE ACTIVITY: As tolerated. DISCHARGE DIET: Unrestricted.
== END 2017-05-11 17:58 | disposition home or self-care (01) ==
LOC: ERS 23:11 → ONC 23:44
PROVIDERS: ADMIT Internal Medicine; ATTEND Internal Medicine
DX: C34.90 Malignant neoplasm of unspecified part of unspecified bronchus or lung (principal); C61 Malignant neoplasm of prostate; E86.0 Dehydration; E11.9 Type 2 diabetes mellitus without complications; F17.200 Nicotine dependence, unspecified, uncomplicated; Z79.84 Long term (current) use of oral hypoglycemic drugs; Z79.899 Other long term (current) drug therapy; Z90.49 Acquired absence of other specified parts of digestive tract; Z98.890 Other specified postprocedural states
CPT/HCPCS: 74020; 80048; 80069; 82962; 83605; 83735; 96361; 96365; 96366; 97139; 99285; G0378; 36416; A4216; J1642; J1644; J3475; J7050; J8540

== ENCOUNTER 2017-05-23 10:27 | Day surgery (SDC) | payer MEDICARE, MEDICAID ==
[2017-05-23] MEDS ORDERED: Sodium Chloride 0.9% 20 ML ONE (10:43)
[2017-05-23 11:01] VITALS: BP 139/73; TEMP 97.8
[2017-05-23] MEDS ORDERED: SODIUM CHLORIDE 0.9% IVPB SCH (11:30)
[2017-05-23] MEDS ORDERED: Ondansetron HCl/PF 10 MG, Dexamethasone 10 MG in Sodium Chloride 0.9% 50 ML IVPB SCH (11:30)
[2017-05-23] MEDS ORDERED: Sodium Chloride 0.9% 1,000 ML IV SCH (11:30)
[2017-05-23] MEDS ORDERED: PEMETREXED IVPB SCH (11:30)
== END 2017-05-23 13:38 | disposition home or self-care (01) ==
LOC: ONC/OP 10:27
PROVIDERS: ATTEND Internal Medicine Medical Oncology
DX: Z51.11 Encounter for antineoplastic chemotherapy (principal); C34.11 Malignant neoplasm of upper lobe, right bronchus or lung; C61 Malignant neoplasm of prostate; Z87.891 Personal history of nicotine dependence
CPT/HCPCS: 36415; 80053; 82248; 83615; 84100; 84550; 96361; 96367; 96413; A4216; J1100; J1642; J2405; J7050; J9305

== ENCOUNTER 2017-05-29 01:27 | Inpatient (IN) | payer MEDICARE, MEDICAID ==
[2017-05-29] MEDS ORDERED: HumaLOG 300 UNITS/3 ML VIAL SC PRN (06:15)
[2017-05-29] MEDS ORDERED: HYDROcodone/Acetaminophen 10/325 mg Tablet PO PRN (06:15)
[2017-05-29] MEDS ORDERED: Ondansetron ODT 4 MG TAB PO PRN (06:15)
[2017-05-29] MEDS ORDERED: Ondansetron HCl/PF 4 MG/2 ML Vial IVP PRN (06:15)
[2017-05-29] MEDS ORDERED: Dextrose 50% Abboject 50 ML SYRINGE SLOW IVP PRN (06:15)
[2017-05-29] MEDS ORDERED: Calcium Carbonate 500 MG ChewTAB PO PRN (06:15)
[2017-05-29] MEDS ORDERED: Dextrose 5% in Water 1,000 ML IV PRN (06:15)
[2017-05-29] MEDS ORDERED: Enoxaparin Sodium 40 MG/0.4 ML SYRINGE SC SCH (06:15)
[2017-05-29] MEDS ORDERED: HYDROcodone/Acetaminophen 5/325 mg Tablet PO PRN (06:15)
--- NOTE | 2017-05-29 06:54 | HP ---
DATE OF ADMISSION: 05/29/2017 TIME OF SERVICE: 0520 CHIEF COMPLAINT: Transfer in for sepsis. HISTORY OF PRESENT ILLNESS: Mr. Salgado is an 81-year-old gentleman who I know fro m previous discharge back on 05/11/2017. At that time he was admitted to the hospital for dehydration, was observed overnight and sent home th e next day. He presented to the [facility] for his generalized weakness. The exact same story that he had o n 05/10/2017. On arrival, he was tachycardic in the 130s. Blood pressure 96/61. Temperature was 99 .4. Lactic acid was 4.2. He was given 1 liter of IV fluids and Zosyn and transferred here. He is feeling better, but still not well. He admits readily to not eating or drinking very much. He denies any chest pain or shortness of breath, no fevers, chills, no diarrhea or constipation. He is still on chemo for his stage III lung cancer. His last dose was about a week ago. His next an d final dose he said is on 06/14/2017. He was admitted by Dr. Geiger. He denies any other current complaints. PAST MEDICAL HISTORY: 1. Prostate cancer on Casodex. 2. Stage IIIA adenocarcinoma of the lung on chemo with Dr. Geiger. 3. Diabetes mellitus type 2 diagnosed 03/2017. 4. Ongoing tobacco abuse. 5. Moderate protein calorie malnutrition. 6. Benign prostatic hypertrophy. PAST SURGICAL HISTORY: 1. Appendectomy. 2. Port-A-Cath placement. 3. Bronchoscopy. HOME MEDICATIONS: 1. Flomax 0.4 mg p.o. at bedtime. 2. Phenergan 12.5 mg p.o. q.6 hours p.r.n. nausea and vomiting. 3. Megace 40 mg daily, which he is not taking. 4. Folate 1 mg daily. 5. Quinidex 50 mg daily, not sure why he takes that. 6. Tylenol #3 as needed. ALLERGIES: NKDA. FAMILY HISTORY: Noncontributory. Negative for history of clotting or bleeding disorders. No and im mune dysfunction. SOCIAL HISTORY: He rarely smokes now. No history of IV drug use or alcohol use. REVIEW OF SYSTEMS: A 10 point review of systems performed, negative for all systems except stated as per HPI. PHYSICAL EXAMINATION: VITAL SIGNS: Temperature on arrival to [facility] 99.4, pulse 130, blood pressure 96/61, respirato ry rate 24, satting 100% on room air. On arrival here last vital signs; temperature is 100.1, blood pressure 108/69, pulse down to 122, res piratory rate 22, satting 98% on room air. GENERAL: He is awake. He is alert. He is oriented x3. He is a cachectic, elderly male, appears to be in no acute distress. HEENT: Normocephalic, atraumatic. Pupils equal, reactive bilaterally. Mucous membranes are moist w ithout visible lesions or thrush. NECK: Supple. No lymphadenopathy, JVD or thyromegaly. LUNGS: Clear. No wheezes, no rales, no rhonchi. Good air movement. Symmetrical chest excursion. CARDIOVASCULAR: Tachycardic but regular. Normal S1, S2. He has a 2/6 systolic ejection murmur at t he right sternal border. ABDOMEN: Soft. It is nontender, nondistended, no mass or organomegaly. EXTREMITIES: No cyanosis, no clubbing with trace edema. SKIN: Warm, moist, and well perfused. His right chest Port-A-Cath is clean, dry, and intact and cur rently accessed. MUSCULOSKELETAL: Normal to inspection, there is no inflamed joints. No palpable effusions. LABORATORY DATA: Sodium 134, potassium 3.7, chloride 99, bicarbonate 20, BUN 15, creatinine 0.84, ca lcium 9.6, and glucose 156. Liver functions are normal. CBC showed a white count of 4.2, hemoglobin 8.5, hematocrit of 25.1, platelets of 159,000. CK-MB normal at 0.5, troponin I 0.016. Lactic acid 4.2, down to 2.2 on arrival here. Urinalysis clear. Chest x-ray showed no acute cardiopulmonary disease. No acute changes. ASSESSMENT AND PLAN: 1. Possible sepsis. The patient got another dose of antibiotics here with Levaquin to cover atypica l stuff. Chest x-ray does not show any acute abnormalities. I do not think he is septic. I think h e is simply volume depleted and dry. He got another liter of IV fluids here. We will continue 150 m L per hour normal saline. 2. Moderate to severe protein calorie malnutrition: The patient is not eating or drinking well. We will restart his Megace 800 mg a day. 3. History of stage IIIA lung cancer, adenocarcinoma, followed by Dr. Geiger. Again, I think he is just dehydrated now, I do not think there is any reason to get Oncology involved yet. We will place him on IV fluids. Anticipate he will be able go home tomorrow. 4. Diabetes mellitus type 2, recently diagnosed 03/2017. Sugar is 156. He was placed on a diabetic diet with Glucerna supplements. We will use sliding scale insulin for correction. 5. Tobacco abuse. Virtually over now. 6. Moderate dehydration, creatinine normal. I will continue IV hydration.
[2017-05-29 08:56] LABS: Lactic Acid 2.6 mmol/L (0.5-2.2)
[2017-05-29] MEDS: Sodium Chloride 0.9% 1,000 ML IV SCH ×3 (09:42→17:18)
[2017-05-29] MEDS: Folic Acid 1 MG TAB PO SCH (09:42)
[2017-05-29] MEDS: Megestrol Acetate 800 MG/20 ML UDCUP PO SCH (09:42)
[2017-05-29] MEDS: Docusate 100 MG CAP PO SCH ×2 (09:42→21:29)
[2017-05-29] MEDS: Famotidine 20 MG TAB PO SCH ×2 (09:42→21:29)
[2017-05-29] MEDS: Bicalutamide 50 MG TAB PO SCH (14:10)
[2017-05-29] MEDS ORDERED: cefTRIAXone\\ROCEPHIN 1 GM in Sodium Chloride 0.9% 100 ML IVPB SCH (16:15)
[2017-05-29 16:18] VITALS: BMI 16.1
--- NOTE | 2017-05-29 16:43 | PDOC.EVN ---
Event Note - Event Note Event Note: pt seen and evaluated continue current mx
[2017-05-29] MEDS: Acetaminophen 325 MG TAB PO PRN (17:19)
[2017-05-29] MEDS: cefTRIAXone\\ROCEPHIN 1 GM, Syringe 0.4 ML in Sterile Water 9.6 ML SLOW IVP SCH (18:21)
[2017-05-29] MEDS: Tamsulosin HCl 0.4 MG CAP PO SCH (21:29)
[2017-05-30] MEDS: Sodium Chloride 0.9% 1,000 ML IV SCH (04:13)
[2017-05-30 05:12] LABS: #Lymphocytes 0.8 thou/uL (1.20-3.40); #Monocytes 0.2 thou/uL (0.11-0.59); #Neutrophils 0.7 thou/uL (1.40-6.50); %Basophils 1.7 % (0.0-1.0); %Lymphocytes 47.7 % (21.0-51.0); %Monocytes 9.4 % (0.0-10.0); %Neutrophils 39.3 % (42.0-75.0); Hemoglobin 8.2 g/dL (14.0-18.0); Mean Corpuscular HGB CONC 32.6 g/dL (32.0-36.0); Mean Corpuscular Hemoglobin 31.2 pg (27.0-31.0); Mean Corpuscular Volume 95.8 fl (80.0-94.0); Mean Platelet Volume 7.4 fL (7.4-10.4); Platelet Count 120 thou/uL (130-400); RBC Distribution Width 15.5 % (11.5-14.5); Red Blood Cell (RBC) Count 2.64 mill/uL (4.70-6.10); White Blood Cell (WBC) Count 1.7 thou/uL (4.8-10.8)
[2017-05-30 05:15] LABS: Lactic Acid 1.2 mmol/L (0.5-2.2)
[2017-05-30 05:18] LABS: Anion Gap 16 mmol/L (10-20); BUN (Urea Nitrogen) 8 mg/dL (8.4-25.7); Calc. Creatinine Clearance 51 mL/min (70-130); Calcium 9.2 mg/dL (7.8-10.44); Carbon Dioxide 18 mmol/L (23-31); Chloride 107 mmol/L (98-107); Estimated GFR-MDRD Greater than 90; Glucose 81 mg/dL (83-110); Sodium 137 mmol/L (136-145)
[2017-05-30] MEDS: Famotidine 20 MG TAB PO SCH ×2 (08:02→20:10)
[2017-05-30] MEDS: Folic Acid 1 MG TAB PO SCH (08:02)
[2017-05-30] MEDS: Docusate 100 MG CAP PO SCH ×2 (08:02→20:00)
[2017-05-30] MEDS: Acetaminophen 325 MG TAB PO PRN ×2 (08:02→20:10)
[2017-05-30] MEDS: Enoxaparin Sodium 40 MG/0.4 ML SYRINGE SC SCH (08:02)
[2017-05-30] MEDS: Megestrol Acetate 800 MG/20 ML UDCUP PO SCH (08:02)
--- NOTE | 2017-05-30 08:33 | RAD ---
PORTABLE CHEST: History: Respiratory distress. Comparison: 05-28-17 FINDINGS: Heart size is within normal limits. There are atherosclerotic changes of the aorta. Right sided Medip ort catheter is present. Prominence in the right paratracheal and perihilar regions are unchanged and the nodular density in the region of the lingula also is unchanged since the prior study. Patient do es have a history of non-small cell lung cancer. IMPRESSION: Stable chest. No new process identified. POS: MARQUES
[2017-05-30] MEDS ORDERED: FLU VACC TS2017-18 (>65YR) 0.5 ML SYRINGE IM ONE (09:00)
[2017-05-30] MEDS: Bicalutamide 50 MG TAB PO SCH (10:16)
[2017-05-30] MEDS ORDERED: ISOVUE-370 76%-LOCM 1 ML ONE (11:55)
[2017-05-30 14:15] LABS: Anion Gap 14 mmol/L (10-20); BUN (Urea Nitrogen) 9 mg/dL (8.4-25.7); Calc. Creatinine Clearance 47 mL/min (70-130); Calcium 9.1 mg/dL (7.8-10.44); Carbon Dioxide 21 mmol/L (23-31); Chloride 106 mmol/L (98-107); Estimated GFR-MDRD Greater than 90; Glucose 103 mg/dL (83-110); Potassium 3.9 mmol/L (3.5-5.1); Sodium 137 mmol/L (136-145)
[2017-05-30 15:48] LABS: Bilirubin Negative (Negative); Blood, Urine Negative (Negative); Clarity CLEAR (Clear); Glucose, Urine (Dipstick) Negative (Negative); Leukocyte Negative (Negative); Nitrite Negative (Negative); Protein, Urine (Dipstick) 30 mg/dL (Neg-Trace); Specific Gravity, Urine 1.013 (1.002-1.036); Urobilinogen 0.2 mg/dL (0.2-1.0); pH, Urine 6.5 (5.0-9.0)
[2017-05-30 15:51] LABS: Bacteria/HPF None Seen HPF (None Seen); Hyaline Casts/LPF 0-3 HYALINE CAST LPF (0-3 Hyaline); Pathc Cast-AUWi Flag 0.13 (0-2.49); RBC/HPF 0-3 HPF (0-3); Squamous Epithelial 0-3 HPF (0-3); WBC/HPF 0-3 HPF (0-3)
[2017-05-30 16:04] LABS: Yeast-All Forms 1+ HPF (None Seen)
--- NOTE | 2017-05-30 16:08 | CT ---
CT PULMONARY ANGIOGRAM WITH IV CONTRAST AND 3D POSTPROCESSING 05/30/17 HISTORY: Lung cancer, fever, tachycardia. FINDINGS: The pulmonary artery vasculature is well opacified without filling defects to suggest thromboembolism . The thoracic aorta demonstrates no evidence of aneurysm or dissection. A tiny right pleural effusio n is present. No pericardial or left sided pleural effusion identified. The largest mediastinal lymph node measures 1 cm. Patchy consolidative change in the right supra and infrahilar regions is worse than on the PET CT of 03/14/16 and may either be due to post radiation changes, tumor or infection. The lingular mass has i ncreased in size from the PET CT measuring 3.5 cm. Small wedge shaped consolidation in the anteromedi al aspect of the right upper lobe is stable. Small focal infiltrate is seen in the left lower lobe. F ocal area of nodularity of 15 mm in the upper right posteromedial lung is stable since the PET scan. Focal anterior pleural thickening in the right upper lobe is also stable. There are fractures involvi ng the right fourth and fifth ribs posteriorly. There are degenerative changes present in the spine. IMPRESSION: No evidence of pulmonary embolism. POS: MARQUES
[2017-05-30] MEDS: cefTRIAXone\\ROCEPHIN 1 GM, Syringe 0.4 ML in Sterile Water 9.6 ML SLOW IVP SCH (17:02)
--- NOTE | 2017-05-30 17:06 | PDOC.PN ---
- Subjective Encounter Start Date: 05/30/17 Encounter Start Time: 17:05 more alert eating no n/v no f/c - Objective Resuscitation Status: Resuscitation Status FULL:Full Resuscitation MAR Reviewed: Yes Vital Signs & Weight: Vital Signs (12 hours) Temp Pulse Resp BP Pulse Ox 05/30/17 16:11 99.2 F 118 H 16 116/70 92 L 05/30/17 12:21 98.3 F 109 H 16 104/63 100 05/30/17 09:25 100.0 F H 118 H 16 96 05/30/17 08:00 101.4 F H 118 H 20 05/30/17 07:20 101.4 F H 118 H 20 103/67 95 05/30/17 05:26 98 F 89 20 97/65 97 Weight Admit Weight 109 lb 3.2 oz Weight 109 lb 3.2 oz I&O: 05/29/17 05/30/17 05/31/17 06:59 06:59 06:59 Intake Total 2440 Output Total 1750 Balance 690 Result Diagrams: 05/30/17 04:40 05/30/17 13:32 Additional Labs: Accuchecks 05/29/17 19:54 POC Glucose 101 Phys Exam - Physical Examination Constitutional: NAD HEENT: PERRLA Neck: no JVD Respiratory: no wheezing Cardiovascular: no significant murmur Gastrointestinal: non-tender Musculoskeletal: pulses present Neurological: moves all 4 limbs Psychiatric: A&O x 3 Dx/Plan (1) Fever Code(s): R50.9 - FEVER, UNSPECIFIED Status: Acute (2) Tachycardia Code(s): R00.0 - TACHYCARDIA, UNSPECIFIED Status: Acute (3) COPD (chronic obstructive pulmonary disease) Status: Chronic (4) H/O malignant neoplasm of prostate Code(s): Z85.46 - PERSONAL HISTORY OF MALIGNANT NEOPLASM OF PROSTATE Status: Chronic (5) Lung cancer Code(s): C34.90 - MALIGNANT NEOPLASM OF UNSP PART OF UNSP BRONCHUS OR LUNG Status: Chronic (6) Malnutrition Code(s): E46 - UNSPECIFIED PROTEIN-CALORIE MALNUTRITION Status: Chronic Qualifiers: (7) Diabetic hyperosmolar non-ketotic state Code(s): E11.00 - TYPE 2 DIAB W HYPROSM W/O NONKET HYPRGLY-HYPROS COMA ([facility]) Status: Suspected - Plan * consult oncology' * consult palliative care * cont current mx * pt/ot
--- NOTE | 2017-05-30 17:14 | CON ---
DATE OF CONSULTATION: 05/30/2017 REASON FOR CONSULTATION: Neutropenic fever. HISTORY OF PRESENT ILLNESS: Mr. Salgado is an 81-year-old male who is undergoing treatment with Ali mta for stage 3A lung cancer. He also has prostate cancer for which he received Lupron and Casodex. He had chemotherapy on 05/23/2017 and presented to the emergency room yesterday with complaints of w eakness. He was noted to be mildly dehydrated. His lactic acid was elevated. He was admitted for I V hydration. This morning, he developed a fever of 101.4. He was pancultured and all preliminary re sults have been negative. Flu was negative. He has been started on empiric antibiotics and continue s IV hydration. On admission, his white count was 1.7 with an ANC of 0.7, his hemoglobin was 8.2 and his platelet count was 120,000. He complains of sore throat, but denies any congestion or cough. N o chest pain or shortness of breath. Denies any nausea, vomiting, diarrhea or constipation. PAST MEDICAL HISTORY: 1. 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 2. Prostate cancer. 3. Diabetes mellitus 2. 4. BPH. 5. Tobacco abuse. PAST SURGICAL HISTORY: 1. MediPort placement. 2. Bronchoscopy. 3. Appendectomy. ALLERGIES: No known drug allergies. HOME MEDICATIONS: 1. Casodex 50 mg daily. 2. Flomax 0.4 mg daily. 3. Megestrol 10 mL daily. 4. Metformin 1000 mg b.i.d. 5. B12 daily. FAMILY HISTORY: Father had an unknown type of cancer. SOCIAL HISTORY: He is , lives with his significant other, current every day smoker. No alco hol or illicit drug use. REVIEW OF SYSTEMS: A 12 point review of systems is negative except for noted in HPI. PHYSICAL EXAMINATION: VITAL SIGNS: Temperature is 99.2 with T-max of 101.4, heart rate 118, respiratory rate 16, BP is 116 /70, he is 92% on room air. GENERAL: A thin -Dutch male in no acute distress. HEENT: Normocephalic, atraumatic. Pupils are equal and reactive to light. NECK: Supple. CARDIOVASCULAR: Regular rate and rhythm. LUNGS: Clear. ABDOMEN: Soft, nontender, bowel sounds are positive. EXTREMITIES: No clubbing, cyanosis or edema. SKIN: No rash. HEMATOLOGIC: No petechia or purpura. NEUROLOGIC: Nonfocal. PSYCHIATRIC: The patient is alert and oriented and appropriate. PERTINENT LABORATORY DATA AND IMAGING DATA: Current WBCs are 1.7, hemoglobin 8.2, hematocrit 25.3, a nd platelet count is 120,000. He has got 39% neutrophils, 47% lymphocytes. Sodium is 137, potassium 3.9, chloride 106, CO2 is 21, BUN 9, and creatinine 0.87. Lactic acid 1.2, calcium 9.1. Chest x-ra y showed no acute process. He had a CT angiogram which showed no evidence of pulmonary embolism. IMPRESSION: 1. Stage 3 lung cancer status post chemotherapy last week. 2. Neutropenic fever. 3. Prostate cancer on Lupron and Casodex. DISCUSSION: The patient is on empiric antibiotics and IV fluids. He has intermittent fever, we will provide Tylenol p.r.n. and encourage nutrition for the patient. He will be stable for discharge onc e he is afebrile for 24 hours. Thank you for the consult. We will follow his hospital course closely.
[2017-05-30] MEDS: Tamsulosin HCl 0.4 MG CAP PO SCH (20:10)
[2017-05-31 06:16] LABS: Lactic Acid 0.7 mmol/L (0.5-2.2)
[2017-05-31 06:27] LABS: Band 2 % (5-11); Eosinophils 1 % (0-10); Hemoglobin 7.1 g/dL (14.0-18.0); Lymphocytes 46 % (21-51); MDiff Complete? YES; Mean Corpuscular HGB CONC 33.3 g/dL (32.0-36.0); Mean Corpuscular Hemoglobin 31.6 pg (27.0-31.0); Mean Corpuscular Volume 94.9 fl (80.0-94.0); Monocytes 18 % (0-10); Myelocyte 1 % (0-0); Neutrophil 32 % (42-75); PLT Morphology Comment Appears Decreased; Platelet Count 93 thou/uL (130-400); RBC Distribution Width 15.8 % (11.5-14.5); Red Blood Cell (RBC) Count 2.24 mill/uL (4.70-6.10); White Blood Cell (WBC) Count 1.5 thou/uL (4.8-10.8)
[2017-05-31] MEDS: Famotidine 20 MG TAB PO SCH ×2 (08:27→21:50)
[2017-05-31] MEDS: Bicalutamide 50 MG TAB PO SCH (08:27)
[2017-05-31] MEDS: Megestrol Acetate 800 MG/20 ML UDCUP PO SCH (08:27)
[2017-05-31] MEDS: Docusate 100 MG CAP PO SCH ×2 (08:27→22:40)
[2017-05-31] MEDS: Folic Acid 1 MG TAB PO SCH (08:27)
[2017-05-31] MEDS: Enoxaparin Sodium 40 MG/0.4 ML SYRINGE SC SCH (08:28)
--- NOTE | 2017-05-31 11:43 | PDOC.PN ---
- Subjective Encounter Start Date: 05/31/17 Encounter Start Time: 11:40 Patient seen and examined. No new complaints. No overnight eventsa had low grade fever - Objective Resuscitation Status: Resuscitation Status FULL:Full Resuscitation MAR Reviewed: Yes Vital Signs & Weight: Vital Signs (12 hours) Temp Pulse Resp BP BP Pulse Ox 05/31/17 11:27 99.3 F 122 H 16 96/58 L 97 05/31/17 08:27 98.9 F 104 H 16 94/51 L 99 05/31/17 08:00 98.9 F 104 H 16 94/51 L 99 05/31/17 07:58 98.9 F 94 16 94/51 L 99 05/31/17 04:00 99.2 F 101 H 18 92/53 L 97 05/30/17 23:48 99 F 103 H 16 94/56 L 97 Weight Admit Weight 109 lb 3.2 oz Weight 109 lb 3.2 oz I&O: 05/30/17 05/31/17 06/01/17 06:59 06:59 06:59 Intake Total 2440 400 Output Total 1750 1650 Balance 690 -1250 Result Diagrams: 05/31/17 04:39 05/30/17 13:32 Additional Labs: Accuchecks 05/31/17 05/30/17 05/30/17 05:19 19:12 16:15 POC Glucose 86 111 H 98 05/29/17 05/29/17 16:29 11:47 POC Glucose 125 H 115 H Phys Exam - Physical Examination Constitutional: NAD HEENT: PERRLA Neck: no nodes Respiratory: no rales coarse bs Cardiovascular: no significant murmur Gastrointestinal: non-tender Musculoskeletal: pulses present Neurological: normal sensation Psychiatric: A&O x 3 Dx/Plan (1) Fever Code(s): R50.9 - FEVER, UNSPECIFIED Status: Acute Comment: neutropenic fever (2) Tachycardia Code(s): R00.0 - TACHYCARDIA, UNSPECIFIED Status: Acute (3) COPD (chronic obstructive pulmonary disease) Status: Chronic (4) H/O malignant neoplasm of prostate Code(s): Z85.46 - PERSONAL HISTORY OF MALIGNANT NEOPLASM OF PROSTATE Status: Chronic (5) Lung cancer Code(s): C34.90 - MALIGNANT NEOPLASM OF UNSP PART OF UNSP BRONCHUS OR LUNG Status: Chronic (6) Malnutrition Code(s): E46 - UNSPECIFIED PROTEIN-CALORIE MALNUTRITION Status: Chronic Qualifiers: (7) Diabetic hyperosmolar non-ketotic state Code(s): E11.00 - TYPE 2 DIAB W HYPROSM W/O NONKET HYPRGLY-HYPROS COMA ([facility]) Status: Suspected - Plan * cont same rx * add levaquin * d/c when afebrile for more than 24 hrs * f/u palliative care plan a * onc input appreciated
[2017-05-31 12:36] LABS: Anion Gap 15 mmol/L (10-20); BUN (Urea Nitrogen) 9 mg/dL (8.4-25.7); Calc. Creatinine Clearance 51 mL/min (70-130); Carbon Dioxide 20 mmol/L (23-31); Chloride 106 mmol/L (98-107); Estimated GFR-MDRD Greater than 90; Glucose 100 mg/dL (83-110); Potassium 3.5 mmol/L (3.5-5.1); Sodium 137 mmol/L (136-145)
[2017-05-31] MEDS: cefTRIAXone\\ROCEPHIN 1 GM, Syringe 0.4 ML in Sterile Water 9.6 ML SLOW IVP SCH (16:34)
[2017-05-31] MEDS: Tamsulosin HCl 0.4 MG CAP PO SCH (21:50)
[2017-06-01 07:05] LABS: Hemoglobin 8.4 g/dL (14.0-18.0); Mean Corpuscular HGB CONC 32.4 g/dL (32.0-36.0); Mean Corpuscular Volume 95.7 fl (80.0-94.0); Mean Platelet Volume 7.7 fL (7.4-10.4); Platelet Count 94 thou/uL (130-400); RBC Distribution Width 15.9 % (11.5-14.5); White Blood Cell (WBC) Count 1.9 thou/uL (4.8-10.8)
[2017-06-01 07:06] LABS: Anisocytosis SLIGHT = 6-15 cells (100X) (0-5/hpf); Band 8 % (5-11); Eosinophils 4 % (0-10); Lymphocytes 48 % (21-51); MDiff Complete? YES; Monocytes 14 % (0-10); Neutrophil 26 % (42-75); PLT Morphology Comment Appears Decreased
[2017-06-01] MEDS: Docusate 100 MG CAP PO SCH ×2 (08:49→20:46)
[2017-06-01] MEDS: Bicalutamide 50 MG TAB PO SCH (08:50)
[2017-06-01] MEDS: Megestrol Acetate 800 MG/20 ML UDCUP PO SCH (08:50)
[2017-06-01] MEDS: Famotidine 20 MG TAB PO SCH ×2 (08:50→20:45)
[2017-06-01] MEDS: Folic Acid 1 MG TAB PO SCH (08:50)
[2017-06-01] MEDS: Enoxaparin Sodium 40 MG/0.4 ML SYRINGE SC SCH (08:50)
[2017-06-01 09:36] LABS: Anion Gap 17 mmol/L (10-20); BUN (Urea Nitrogen) 8 mg/dL (8.4-25.7); Calc. Creatinine Clearance 51 mL/min (70-130); Carbon Dioxide 17 mmol/L (23-31); Chloride 106 mmol/L (98-107); Estimated GFR-MDRD Greater than 90; Glucose 92 mg/dL (83-110); Potassium 3.1 mmol/L (3.5-5.1); Sodium 137 mmol/L (136-145)
--- NOTE | 2017-06-01 09:39 | PDOC.PN ---
- Subjective Encounter Start Date: 06/01/17 Encounter Start Time: 09:36 Patient seen and examined. No new complaints. No overnight events - Objective Resuscitation Status: Resuscitation Status DNR:Do Not Resuscitate MAR Reviewed: Yes Vital Signs & Weight: Vital Signs (12 hours) Temp Pulse Resp BP Pulse Ox 06/01/17 08:00 97.4 F L 99 20 105/63 99 06/01/17 04:00 98.6 F 06/01/17 00:00 98.8 F I&O: 05/31/17 06/01/17 06/02/17 06:59 06:59 06:59 Intake Total 950 Output Total 650 Balance 300 Result Diagrams: 06/01/17 04:15 06/01/17 04:15 Additional Labs: Accuchecks 06/01/17 05/31/17 05:00 16:15 POC Glucose 123 H 93 Phys Exam - Physical Examination Constitutional: NAD HEENT: PERRLA Neck: no JVD Respiratory: no wheezing Cardiovascular: no significant murmur Gastrointestinal: non-tender Musculoskeletal: pulses present Neurological: moves all 4 limbs Psychiatric: A&O x 3 Dx/Plan (1) Fever Code(s): R50.9 - FEVER, UNSPECIFIED Status: Resolved Comment: neutropenic fever blood culture negative no source identified sepsis ruled out (2) Tachycardia Code(s): R00.0 - TACHYCARDIA, UNSPECIFIED Status: Resolved (3) COPD (chronic obstructive pulmonary disease) Status: Chronic (4) H/O malignant neoplasm of prostate Code(s): Z85.46 - PERSONAL HISTORY OF MALIGNANT NEOPLASM OF PROSTATE Status: Chronic (5) Lung cancer Code(s): C34.90 - MALIGNANT NEOPLASM OF UNSP PART OF UNSP BRONCHUS OR LUNG Status: Chronic (6) Malnutrition Code(s): E46 - UNSPECIFIED PROTEIN-CALORIE MALNUTRITION Status: Chronic Qualifiers: Malnutrition type: protein-calorie malnutrition Protein-calorie malnutrition severity: moderate Qualified Code(s): E44.0 - Moderate protein- calorie malnutrition (7) Diabetic hyperosmolar non-ketotic state Code(s): E11.00 - TYPE 2 DIAB W HYPROSM W/O NONKET HYPRGLY-HYPROS COMA ([facility]) Status: Suspected - Plan * doing better * f/u h/o plan * will d/c in am if counts good and doing well * case mx to help with discharge planning
--- NOTE | 2017-06-01 12:38 | PQF ---
DATE: 06-01-17 ATTN: ROSIE Please exercise your independent, professional judgment in responding to the clarification form. Clinical indicators are provided on the bottom of this form for your review Please check appropriate box(s) to clarify if the following diagnosis has been ruled in our ruled out: SEPSIS (CDI/Coding list diagnosis here) [ ] Ruled in diagnosis [ ] Continue to treat [ ] Resolved [ ] Ruled out diagnosis [ ] Other diagnosis [ ] Unable to determine In addition, please specify: Present on Admission (POA): [ ] Yes [ ] No [ ] Unable to determine For continuity of documentation, please document condition throughout progress notes and discharge summary. Thank You. CLINICAL INDICATORS - SIGNS / SYMPTOMS / LABS ER DOCUMENTATION: SEPSIS, DEHYDRATION, HISTORY OF LUNG CANCER H&P: POSSIBLE SEPSIS PN DR. VELEZ 06-01-17: ACUTE NEUTROPENIC FEVER RISK FACTORS: H&P: STAGE 3 LUNG CANCER, HX OF DM 2, CHRONIC COPD TREATMENTS: (05-29-17) AMERICA HOWARD (This form is maintained as a part of the permanent medical record) 2014 [employer]. All Rights Reserved [place] [email or web address] Office: [phone] [facility]ITAL[facility] Fernanda
--- NOTE | 2017-06-01 12:52 | PQF ---
Date: 06-01-17 ATTN: DR. VELEZ Please exercise your independent, professional judgment in responding to the clarification form. Clinical indicators are provided on the bottom of this form for your review Please check appropriate box(s): [ ] Protein Calorie Malnutrition: [ ] Mild [ ] Moderate [ ] Severe [ ] Other Malnutrition (please specify) __ [ ] Other diagnosis [ ] Unable to determine In addition, please specify: Present on Admission (POA): [ ] Yes [ ] No [ ] Unable to determine CLINICAL INDICATORS - SIGNS / SYMPTOMS / LABS BMI of 16.1 H&P: MODERATE TO SEVERE PROTEIN CALORIE MALNUTRITION H&P: HE IS CACHECTIC RISK FACTORS: H&P: HISTORY OF STAGE 3A LUNG CANCER, ADENOCARCINOMA TREATMENT: DIETARY CONSULT 05-30-17: The pt is currently on chemo for lung cancer, and his last dose was 1 week ago. The pt reports his appetite was poor for ~1 week, but today it is somewhat better. He states he started chemo 2 weeks ago and has lost from 129# down to current wt of 109#. DIETARY CONSULT 05-30-17: Muscle wasting observed to [facility] (This form is maintained as a part of the permanent medical record) 2014 [employer]. All Rights Reserved [place] [email or web address] Office: [phone] [facility]ENTERMaria Fernanda
[2017-06-01] MEDS: cefTRIAXone\\ROCEPHIN 1 GM, Syringe 0.4 ML in Sterile Water 9.6 ML SLOW IVP SCH (17:57)
[2017-06-01] MEDS: Tamsulosin HCl 0.4 MG CAP PO SCH (20:45)
[2017-06-02 05:31] LABS: Band 7 % (5-11); Eosinophils 1 % (0-10); Hypochromia SLIGHT = 6-15 cells (100X) (0-5/hpf); Lymphocytes 46 % (21-51); MDiff Complete? YES; Mean Corpuscular HGB CONC 32.8 g/dL (32.0-36.0); Mean Corpuscular Volume 94.7 fl (80.0-94.0); Mean Platelet Volume 8.5 fL (7.4-10.4); Monocytes 19 % (0-10); Neutrophil 27 % (42-75); PLT Morphology Comment Appears Decreased; Platelet Count 80 thou/uL (130-400); RBC Distribution Width 15.7 % (11.5-14.5); Red Blood Cell (RBC) Count 2.24 mill/uL (4.70-6.10); White Blood Cell (WBC) Count 2.5 thou/uL (4.8-10.8)
[2017-06-02] MEDS: Enoxaparin Sodium 40 MG/0.4 ML SYRINGE SC SCH (07:06)
[2017-06-02] MEDS: Folic Acid 1 MG TAB PO SCH (07:51)
[2017-06-02] MEDS: Famotidine 20 MG TAB PO SCH ×2 (07:51→20:41)
[2017-06-02] MEDS: Bicalutamide 50 MG TAB PO SCH (07:51)
[2017-06-02] MEDS: Docusate 100 MG CAP PO SCH ×2 (07:52→20:41)
[2017-06-02] MEDS: Megestrol Acetate 800 MG/20 ML UDCUP PO SCH (07:53)
--- NOTE | 2017-06-02 12:50 | PDOC.PN ---
- Subjective Encounter Start Date: 06/02/17 Encounter Start Time: 12:49 feels better walking more no n/v no hematuria no loss of blood in stool - Objective Resuscitation Status: Resuscitation Status DNR:Do Not Resuscitate MAR Reviewed: Yes Vital Signs & Weight: Vital Signs (12 hours) Temp Pulse Resp BP Pulse Ox 06/02/17 08:15 98.8 F 96 16 99/62 95 06/02/17 08:00 98.8 F 96 16 06/02/17 04:56 98.7 F 06/02/17 02:00 98.5 F Weight Admit Weight 109 lb 3.2 oz Weight 109 lb 3.2 oz I&O: 06/01/17 06/02/17 06/03/17 06:59 06:59 06:59 Intake Total 950 1290 Output Total 650 Balance 300 1290 Result Diagrams: 06/02/17 03:28 06/01/17 04:15 Additional Labs: Accuchecks 06/02/17 06/02/17 06/01/17 12:06 04:13 19:33 POC Glucose 103 117 H 133 H 06/01/17 16:22 POC Glucose 103 Phys Exam - Physical Examination Constitutional: NAD HEENT: PERRLA Neck: no JVD Respiratory: no rales Cardiovascular: no significant murmur Gastrointestinal: non-tender Musculoskeletal: pulses present Neurological: moves all 4 limbs Psychiatric: A&O x 3 Dx/Plan (1) Fever Code(s): R50.9 - FEVER, UNSPECIFIED Status: Resolved Comment: neutropenic fever blood culture negative no source identified sepsis ruled out (2) Tachycardia Code(s): R00.0 - TACHYCARDIA, UNSPECIFIED Status: Resolved (3) COPD (chronic obstructive pulmonary disease) Status: Chronic (4) H/O malignant neoplasm of prostate Code(s): Z85.46 - PERSONAL HISTORY OF MALIGNANT NEOPLASM OF PROSTATE Status: Chronic (5) Lung cancer Code(s): C34.90 - MALIGNANT NEOPLASM OF UNSP PART OF UNSP BRONCHUS OR LUNG Status: Chronic (6) Malnutrition Code(s): E46 - UNSPECIFIED PROTEIN-CALORIE MALNUTRITION Status: Chronic Qualifiers: Malnutrition type: protein-calorie malnutrition Protein-calorie malnutrition severity: moderate Qualified Code(s): E44.0 - Moderate protein- calorie malnutrition (7) Diabetic hyperosmolar non-ketotic state Code(s): E11.00 - TYPE 2 DIAB W HYPROSM W/O NONKET HYPRGLY-HYPROS COMA ([facility]) Status: Suspected - Plan * monitor h/h * monitor k * d/c in am if good
[2017-06-02 13:00] LABS: Anion Gap 14 mmol/L (10-20); BUN (Urea Nitrogen) 8 mg/dL (8.4-25.7); Calc. Creatinine Clearance 53 mL/min (70-130); Calcium 8.8 mg/dL (7.8-10.44); Carbon Dioxide 22 mmol/L (23-31); Chloride 105 mmol/L (98-107); Estimated GFR-MDRD Greater than 90; Glucose 87 mg/dL (83-110); Magnesium 1.4 mg/dL (1.6-2.6); Potassium 3.3 mmol/L (3.5-5.1); Sodium 138 mmol/L (136-145)
[2017-06-02] MEDS ORDERED: Potassium Chloride 20 MEQ TAB PO SCH (13:00)
[2017-06-02] MEDS: Tamsulosin HCl 0.4 MG CAP PO SCH (20:41)
[2017-06-03 05:06] LABS: Anion Gap 14 mmol/L (10-20); BUN (Urea Nitrogen) 9 mg/dL (8.4-25.7); Calc. Creatinine Clearance 52 mL/min (70-130); Calcium 8.7 mg/dL (7.8-10.44); Carbon Dioxide 22 mmol/L (23-31); Chloride 108 mmol/L (98-107); Estimated GFR-MDRD Greater than 90; Glucose 87 mg/dL (83-110); Magnesium 1.5 mg/dL (1.6-2.6); Potassium 3.6 mmol/L (3.5-5.1); Sodium 140 mmol/L (136-145)
[2017-06-03 05:35] LABS: Band 3 % (5-11); Eosinophils 1 % (0-10); Hemoglobin 7.2 g/dL (14.0-18.0); Lymphocytes 35 % (21-51); MDiff Complete? YES; Mean Corpuscular HGB CONC 32.8 g/dL (32.0-36.0); Mean Corpuscular Hemoglobin 31.3 pg (27.0-31.0); Mean Corpuscular Volume 95.4 fl (80.0-94.0); Metamyelocyte 1 % (0-0); Monocytes 13 % (0-10); Myelocyte 1 % (0-0); Neutrophil 46 % (42-75); Nucleated RBC 1 % (0); PLT Morphology Comment Appears Decreased; Platelet Count 77 thou/uL (130-400); RBC Distribution Width 15.9 % (11.5-14.5); Red Blood Cell (RBC) Count 2.31 mill/uL (4.70-6.10); White Blood Cell (WBC) Count 3.6 thou/uL (4.8-10.8)
[2017-06-03] MEDS: Megestrol Acetate 800 MG/20 ML UDCUP PO SCH (08:37)
[2017-06-03] MEDS: Folic Acid 1 MG TAB PO SCH (08:38)
[2017-06-03] MEDS: Famotidine 20 MG TAB PO SCH (08:38)
[2017-06-03] MEDS: Bicalutamide 50 MG TAB PO SCH (08:38)
[2017-06-03] MEDS: Docusate 100 MG CAP PO SCH ×2 (08:39→11:43)
[2017-06-03 09:11] VITALS: BP 118/73; TEMP 98.6
--- NOTE | 2017-06-03 11:27 | PDOC.PN ---
- Subjective Encounter Start Date: 06/03/17 Encounter Start Time: 11:26 Patient seen and examined. No new complaints. No overnight events - Objective Resuscitation Status: Resuscitation Status DNR:Do Not Resuscitate MAR Reviewed: Yes Vital Signs & Weight: Vital Signs (12 hours) Temp Pulse Resp BP Pulse Ox 06/03/17 08:00 98.6 F 106 H 18 118/73 100 06/03/17 06:48 99.2 F 98 18 06/03/17 04:30 99.2 F 06/03/17 01:02 99.1 F Weight Admit Weight 109 lb 3.2 oz Weight 109 lb 3.2 oz I&O: 06/02/17 06/03/17 06/04/17 06:59 06:59 06:59 Intake Total 1290 480 Balance 1290 480 Result Diagrams: 06/03/17 03:41 06/03/17 03:41 Additional Labs: Accuchecks 06/03/17 06/02/17 06/02/17 04:03 20:46 16:39 POC Glucose 105 125 H 99 06/02/17 12:06 POC Glucose 103 Phys Exam - Physical Examination Constitutional: NAD HEENT: moist MMs Neck: no JVD Respiratory: no rales Cardiovascular: no significant murmur Gastrointestinal: non-tender Musculoskeletal: pulses present Neurological: moves all 4 limbs Psychiatric: A&O x 3 Dx/Plan (1) Fever Code(s): R50.9 - FEVER, UNSPECIFIED Status: Resolved Comment: neutropenic fever blood culture negative no source identified sepsis ruled out (2) Tachycardia Code(s): R00.0 - TACHYCARDIA, UNSPECIFIED Status: Resolved (3) COPD (chronic obstructive pulmonary disease) Status: Chronic (4) H/O malignant neoplasm of prostate Code(s): Z85.46 - PERSONAL HISTORY OF MALIGNANT NEOPLASM OF PROSTATE Status: Chronic (5) Lung cancer Code(s): C34.90 - MALIGNANT NEOPLASM OF UNSP PART OF UNSP BRONCHUS OR LUNG Status: Chronic (6) Malnutrition Code(s): E46 - UNSPECIFIED PROTEIN-CALORIE MALNUTRITION Status: Chronic Qualifiers: Malnutrition type: protein-calorie malnutrition Protein-calorie malnutrition severity: moderate Qualified Code(s): E44.0 - Moderate protein- calorie malnutrition (7) Diabetic hyperosmolar non-ketotic state Code(s): E11.00 - TYPE 2 DIAB W HYPROSM W/O NONKET HYPRGLY-HYPROS COMA ([facility]) Status: Suspected - Plan * doing good * d/c home
[2017-06-03] MEDS ORDERED: Magnesium Oxide 400 MG TAB PO SCH (21:00)
--- NOTE | 2017-06-03 21:05 | DIS ---
DATE OF ADMISSION: 05/29/2017 DATE OF DISCHARGE: 06/03/2017 DISCHARGE DIAGNOSES: 1. Fever, resolved. 2. Prostate cancer, stable. 3. Stage III cancer of the lung, stable. 4. Diabetes mellitus type 2, stable. 5. Dehydration, resolved. 6. Moderate protein calorie malnutrition, stable. 7. BPH, stable. CONSULTANTS: The patient's consultants on the case were Oncology. DISCHARGE MEDICATIONS: Levaquin 750 p.o. daily for 3 more doses. BRIEF HOSPITAL COURSE: This is an 82-year-old pleasant gentleman who came into the hospital with deh ydration and evaluation. Please refer to the admitting physician's H&P for further details. His lac tic acid was 4.2. He was worked up. During this stay, he had a fever and he became neutropenic. On cology was consulted. They recommended broad spectrum IV antibiotics and to monitor the patient clin ically and the white count. The patient had an exam which was negative. Blood cultures were negativ e. The patient improved. His white count improved. He is empirically treated with Levaquin right n ow. He is medically stable to be discharged with outpatient follow up with PCP and Oncology is asked to come back to the emergency room in case he becomes febrile or he has any other symptoms. The pat ient is asked to complete his antibiotic therapy and follow up with PCP and Oncology as scheduled. Total time for this discharge took 35 minutes.
== END 2017-06-03 11:50 | disposition home or self-care (01) | DRG 640 ==
LOC: ERS 01:27 → ERHOLD 05:00 → T4-A 07:09 → OBSVTOIN 05-31 12:07
PROVIDERS: ADMIT Internal Medicine Infectious Disease; ATTEND Internal Medicine Infectious Disease
DX: E86.0 Dehydration (principal); E11.00 Type 2 diabetes mellitus with hyperosmolarity without nonketotic hyperglycemic-hyperosmolar coma (NKHHC); D70.9 Neutropenia, unspecified; E44.0 Moderate protein-calorie malnutrition; C61 Malignant neoplasm of prostate; R64 Cachexia; C34.90 Malignant neoplasm of unspecified part of unspecified bronchus or lung; J44.9 Chronic obstructive pulmonary disease, unspecified; R50.81 Fever presenting with conditions classified elsewhere; F17.210 Nicotine dependence, cigarettes, uncomplicated; N40.0 Benign prostatic hyperplasia without lower urinary tract symptoms; R00.0 Tachycardia, unspecified
CPT/HCPCS: 36415; 36416; 71045; 71275; 80048; 81001; 83605; 83735; 85025; 87040; 87804; 96365; A4216; G8978-GP-CM; G8979-GP-CK; J0696; J1642; J1650; J1956

== ENCOUNTER 2018-10-04 07:29 | Inpatient (IN) | payer MEDICARE, MEDICAID ==
--- NOTE | 2018-10-04 11:13 | CT ---
CTA Angio Chest W WO Con 10/04/2018 7:52 AM Indication: History of lung cancer with A. fib and RVR Technique: Multiple CTA images were obtained of the thorax with IV contrast. 3D reformatted images were constructed from the raw data. Comparison: Recent noncontrast CT of the thorax dated October 04, [address] the chest, abdomen and p robert dated September 04, 2017 Findings: Pulmonary arteries: There is a occlusion with associated thrombus involving the lingular pulmonary a rtery. The lingula pulmonary artery is obliterated by a large lingular mass measuring 9 x 4.3 cm. There is a recurrent mass within the right suprahilar region obliterates the posterior segmental pulm onary artery the right upper lobe with some intraluminal thrombus present within its proximal segment. No additional PE is evident within the right middle lobe, right lower lobe, left upper lobe or left lower lobe. Heart and Great Vessels: The large lingular mass that is contacting the left heart border. There is soft tissue irregularity involving the left superior medial aspect of the heart border suspicious for pericardial invasion. There is a new moderate pericardial effusion. There is soft tissue infiltra tion into the upper anterior mediastinum from the lingular soft tissue mass. There are scattered vascular calcifications. Lungs:The large left lingular massive has increased in size now measuring 9 x 4.3 cm with mediastinal invasion. There are new satellite lesions within the left upper lobe measuring 1.6 cm on image 30 of series 3 and 1.1 cm on image 37 of series 3. There is a recurrent large right suprahilar soft tiss ue mass seen within the region of prior radiation 5 fibrosis now measuring 7.7 x 5.6 cm. This is inducing some postobstructive pneumonia in the right lower lobe. There is severe emphysema. The pleur al-based nodule overlying the right middle lobe measuring 1.7 cm this stable. Pleural space: There is a new moderate left and small right pleural effusion Upper Abdomen: No acute abnormality. Osseous Structures: There is diffuse osteopenia. The multilevel mild wedge compression abnormalities involving the mid to lower thoracic spine appear stable. Impression: 1. 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 There is a new satellite lesions seen within the left upper lobe consistent reg ional metastatic disease. The recurrent mass within the right hilar region is inducing postobstructive pneumonia of the right lower lobe. 2. Moderate left and small right pleural effusions 3. Occlusion of the lingular pulmonary artery and posterior segmental pulmonary artery the right uppe r lobe due to malignancy invasion. Small partially occlusive thrombus is seen within the proximal aspects of these vessels. 4. Findings called to Dr. Cisneros at 11:00 AM on October 04, 2018
[2018-10-04] MEDS ORDERED: ISOVUE-370 76%-LOCM 1 ML ONE (11:50)
[2018-10-04] MEDS ORDERED: Piperacillin/Tazobactam 4.5 GM VIAL ONE (11:58)
[2018-10-04] MEDS ORDERED: Acetaminophen 325 MG TAB PO PRN (13:40)
[2018-10-04] MEDS ORDERED: Bisacodyl 10 MG SUPP PR PRN (13:40)
[2018-10-04] MEDS ORDERED: Nicotine 21 MG PATCH TD SCH (13:45)
--- NOTE | 2018-10-04 14:25 | HP ---
PRIMARY CARE PROVIDER: [facility] in [place]. CHIEF COMPLAINT: Shortness of breath. HISTORY OF PRESENT ILLNESS: Mr. Salgado is a pleasant 83-year-old gentleman, who was seen at [facility] on October 04, 2018, following transfer from [place]. He has a history of lung cancer. He has not been on chemotherapy for the last couple of years. At baseline, he has been mostly lying in bed, not ambulating. Last night, he started having shortness of breath. He denies any cough. He denies any fevers. He reports generalized weakness. He denies any abdominal pain. He also reports retrosternal chest discomfort that he is unable to describe further, but he is able to say that it is worse when he is lying down. At [place], Mr. Salgado was found to have atrial fibrillation with rapid ventricular response. He was transferred to this emergency room for further management. Here, he underwent CT angiogram of the chest, which was positive for pulmonary embolism. REVIEW OF SYSTEMS: All other systems reviewed and found to be negative. PAST MEDICAL HISTORY: Prostate cancer, right lung cancer. PAST SURGICAL HISTORY: Appendectomy and Port-A-Cath to right upper chest. SOCIAL HISTORY: The patient denies alcohol use or recreational drug use. He smokes one pack of cigarettes a day. FAMILY HISTORY: No family history of premature coronary artery disease. ALLERGIES: NO KNOWN DRUG ALLERGIES. CURRENT MEDICATIONS: Tamsulosin 0.4 mg daily, promethazine as needed, folic acid 1 mg daily. CODE STATUS: I discussed his code status with the patient and his daughter, Kaelyn, who is the medical power of personal injury attorney. The patient is full code. PHYSICAL EXAMINATION: GENERAL: On examination, Mr. Salgado is awake and alert, not in acute distress. VITAL SIGNS: Blood pressure is 102/51, pulse 125, respiratory rate 28, and oxygen saturation 97% on 2 L of oxygen. He is afebrile. He appears malnourished. EYES: No scleral icterus, no conjunctival pallor. ENT: Moist mucosal membranes. No oropharyngeal erythema or exudates. NECK: Supple, nontender, trachea is midline. RESPIRATORY: Accessory muscles of breathing are not active. Chest wall movements are symmetric bilaterally. Lungs are clear to auscultation without wheeze, rhonchi, or crepitations. CARDIOVASCULAR: S1 and S2 are heard, tachycardic and regular. Peripheral pulses palpable. No carotid bruit. No pericardial rub. NEUROLOGIC: Cranial nerves 2 through 12 are intact, deep tendon reflexes 2+. MUSCULOSKELETAL: The patient is able to move all four extremities. SKIN: No rashes or subcutaneous nodules. PSYCHIATRIC: Normal mood, normal affect, the patient is oriented to person and place, not to time. LABORATORY DATA: Mr. Salgado's labs and investigations were reviewed. I reviewed his electrocardiogram from [place], which shows atrial fibrillation with rapid ventricular response, no ST changes to suggest an acute coronary syndrome. I also reviewed his electrocardiogram done at [facility], which shows sinus tachycardia, no ST changes to suggest an acute coronary syndrome. I reviewed his CT angiogram of the chest, which was positive for pulmonary embolism in the proximal aspect of the lingular pulmonary artery and posterior segmental pulmonary artery. 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 The patient has diffuse ST-segment elevations suggestive of pericarditis. He has decreased sodium of 132, normal potassium, normal creatinine, elevated lactic acid level of 5.9, elevated AST of 42, otherwise unremarkable liver profile; elevated BNP of 171, and indeterminate troponin I of 0.030. ASSESSMENT AND PLAN: Mr. Salgado is a pleasant 83-year-old gentleman, who was seen at [facility] on October 04, 2018. His problem list includes: 1. Shortness of breath: Likely secondary to a combination of pulmonary embolism as well as worsening lung cancer. He will be admitted to the hospital for further management. 2. Pulmonary embolism: The patient has received a dose of Lovenox. We will continue him on Lovenox for now. 3. Atrial fibrillation with rapid ventricular response: The patient is presenting with atrial fibrillation with rapid ventricular response, although he is currently in sinus tachycardia. Cardiology Service has been consulted for opinion and help with management. 4. Pericarditis: The patient also has pericarditis. We will obtain 2D echocardiogram to evaluate. His chest pain has improved at this time. 5. History of lung cancer: We will consult Oncology Service for opinion and help with management. It is unclear whether the patient can be a candidate for any further chemotherapy, given his deconditioned status. 6. Benign prostate hypertrophy: Continue Flomax. Please note that the patient has received vancomycin and Zosyn in the emergency room because of concern over infection. He has a normal white count, there is no clear evidence of infection. Hold off on antibiotics for now. Many thanks for allowing me to participate in your patient's care. Please feel free to contact me with any questions or concerns. LEVEL OF RISK: High. LEVEL OF COMPLEXITY: High. Job ID: [id number]
[2018-10-04 15:05] LABS: Troponin I 0.028 ng/mL (< 0.028)
[2018-10-04] MEDS ORDERED: Enoxaparin Sodium 40 MG/0.4 ML SYRINGE ONE (15:32)
[2018-10-04] MEDS ORDERED: Enoxaparin Sodium 60 MG/0.6 ML SYRINGE ONE (15:38)
[2018-10-04] MEDS ORDERED: Digoxin 0.5 MG/2 ML AMP SLOW IVP SCH (17:30)
[2018-10-04] MEDS: Enoxaparin Sodium 40 MG/0.4 ML SYRINGE SC SCH (20:04)
--- NOTE | 2018-10-04 21:47 | CON ---
DATE OF CONSULTATION: REASON FOR CONSULT: Lung cancer. HISTORY OF PRESENT ILLNESS: Mr. 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 He was last seen by Dr. Babcock in May of 2017. He had completed chemotherapy for his lung cancer and was offered Opdivo immunotherapy. The patient declined any further treatment and was referred to hospice. The family was against hospice and has been caring for Mr. Salgado over the past year. He has not received Lupron or treatment for his lung cancer during this time. Over the last few days, he began to have increasing shortness of breath and chest pain, so presented to the [facility] for evaluation. He was noted to be in atrial fibrillation with RVR, which converted with diltiazem. He had a CT angio of his chest. There was a large left lingular mass measuring 9 x 4.3 cm with mediastinal invasion. There were satellite nodules in the left upper lobe. He had a large right suprahilar mass measuring 7.7 x 5.6 cm. There was some postobstructive pneumonia of the right lower lobe. He had a pleural-based nodule in the right middle lobe. He had bilateral pleural effusions. There was occlusion of the lingular pulmonary artery and posterior segment mental pulmonary artery due to malignant invasion. Also a small partially occlusive thrombus in the proximal aspect of these vessels. The patient was placed on oxygen and admitted for further treatment. PAST MEDICAL HISTORY: 1. Non-small cell lung cancer. 2. Prostate cancer. 3. Tobacco use. PAST SURGICAL HISTORY: 1. Appendectomy. 2. MediPort placement. ALLERGIES: NO KNOWN DRUG ALLERGIES. HOME MEDICATIONS: None. FAMILY HISTORY: His father had unknown type of history. SOCIAL HISTORY: , lives with his daughter and his . Current everyday smoker. No alcohol or illicit drug use. REVIEW OF SYSTEMS: CONSTITUTIONAL: No fever, chills, or night sweats. EYES: No blurred or double vision. ENT: No pain, hoarseness, sore throat, or dysphagia. CARDIOVASCULAR: Positive for chest pain. RESPIRATORY: Positive for shortness of breath, dyspnea on exertion, and cough. GASTROINTESTINAL: No nausea, vomiting, diarrhea, constipation, or abdominal pain. GENITOURINARY: No dysuria, hematuria. MUSCULOSKELETAL: No joint or back pain. SKIN: No rash or pruritus. NEUROLOGICAL: Positive for weakness and had no headache, numbness, tingling, or seizure activity. PSYCHIATRIC: No anxiety or depression. PHYSICAL EXAMINATION: VITAL SIGNS: Temperature is 95.5, pulse is 122, respiratory rate 26, BP is 104/83. GENERAL: This is a cachectic male, in no acute distress. HEENT: Normocephalic, atraumatic. Pupils are equal and reactive to light. NECK: Supple. CARDIOVASCULAR: Irregular rate and rhythm. He has tachycardia. LUNGS: He has wheezes and crackles throughout. ABDOMEN: Soft and nontender. Bowel sounds are positive. EXTREMITIES: No clubbing, cyanosis, or edema. SKIN: No rash. HEMATOLOGICAL: No petechiae or purpura. NEUROLOGIC: Nonfocal. PSYCHIATRIC: He is alert, oriented, and answers appropriate. PERTINENT LABS AND X-RAYS: Current WBCs are 7.5, hemoglobin 8.2, hematocrit 25.7, platelet count is 337,000, 71% neutrophils, 17% lymphocytes. Sodium is 132, potassium 4.3, chloride 101, CO2 is 15, BUN is 17, creatinine 1.04, lactic acid 5.9, calcium 9.7, total bilirubin 0.7, AST is 42, ALT is 14, alkaline phosphatase is 102. BNP is 171. Serum total protein 7.5, albumin 3.8, globulin 4.2. RADIOLOGY DATA: Per HPI. ASSESSMENT: 1. Progressive metastatic lung cancer. 2. History of prostate cancer. 3. 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 DISCUSSION: The patient has not received treatment since May 2017. His wishes were to no longer pursue treatment for his prostate and lung cancer. He was referred to hospice at that time, but the family declined. They have been caring for him at home. He now has significant progression of disease. He remains a poor candidate for treatment. We will discuss with Dr. Babcock who will follow. The patient denies any pain at this time. Thank you for the consult. Job ID: [id number]
--- NOTE | 2018-10-05 00:07 | CON ---
DATE OF CONSULTATION: HISTORY: Mildred Salgado is an 83-year-old black male with history of lung cancer treated with radiation approximately 4 years ago. He is not very ambulatory and spends most of his time in bed. He started having increased shortness of breath last night. He denies any cough or fevers. Also to me he denied any chest discomfort, but apparently did report that to other physicians. He went to the [place] emergency Room and was found to be in atrial fibrillation with fast ventricular response and was transferred here. EKG here shows that he converted to sinus tachycardia and had diffuse ST segment consistent with acute pericarditis. CT angiogram of the chest revealed pulmonary embolism. At the present time, he denies any chest discomfort and he states that his breathing has improved somewhat. PAST MEDICAL HISTORY: Prostate cancer, right lung cancer. OPERATIONS: Port-A-Cath to the right upper chest, appendectomy. MEDICATIONS: Apparently, he just takes Percocet and Tylenol No.3. ALLERGIES: NONE. SOCIAL HISTORY: He smoked 1/2 pack per day, but does not smoke now. He does not drink. REVIEW OF SYSTEMS: A 10-point review of systems is unremarkable. PHYSICAL EXAMINATION: VITAL SIGNS: Blood pressure 118/73, pulse of 122, sinus rhythm on the monitor. HEENT: PERRL. NECK: Supple. Chest: Reveals crackles on the right. CARDIOVASCULAR: S1 and S2 normal without any S3, S4, murmurs or rubs. ABDOMEN: Normal bowel sounds without tenderness or organomegaly. EXTREMITIES: Revealed no clubbing, cyanosis, or edema. He does not have any palpable calf or thigh tenderness or cords. NEUROLOGIC: Grossly intact. SKIN: Warm and dry. LABORATORY DATA: EKG at [place] revealed atrial fibrillation with fast ventricular response. EKG here shows diffuse 1-mm of ST elevation consistent with pericarditis. IMPRESSION: 1. Pulmonary embolism. 2. Possible pericarditis. He denies any chest pain to me, but apparently did complain that to other physicians. 3. Lung cancer status post radiation therapy. PLAN: The patient will be started on a therapeutic dose of Lovenox. Echocardiogram will be performed. The concern here would be if he indeed has pericarditis, that may be related to metastatic disease from his lung cancer and may be a malignant pericardial effusion. Also there is concern with the need for long-term anticoagulation and the possible development of a hemopericardium. This will need to be watched closely and if he does have evidence of increasing pericardial fluid, consideration would need to be given to placement of an IVC filter. I will follow the patient with you. Job ID: [id number] MTDD
[2018-10-05 05:07] LABS: #Eosinphils 0.1 thou/uL (0.0-0.7); #Lymphocytes 1.6 thou/uL (1.20-3.40); #Monocytes 1.2 thou/uL (0.11-0.59); #Neutrophils 6.4 thou/uL (1.40-6.50); %Basophils 0.1 % (0.0-1.0); %Eosinophils 0.9 % (0.0-10.0); %Lymphocytes 17.5 % (21.0-51.0); %Monocytes 12.9 % (0.0-10.0); %Neutrophils 68.6 % (42.0-75.0); Hemoglobin 9.3 g/dL (14.0-18.0); Mean Corpuscular HGB CONC 31.5 g/dL (32.0-36.0); Mean Corpuscular Hemoglobin 26.9 pg (27.0-31.0); Mean Corpuscular Volume 85.5 fL (78.0-98.0); Mean Platelet Volume 8.4 fL (7.4-10.4); Platelet Count 361 thou/uL (130-400); RBC Distribution Width 14.3 % (11.5-14.5); Red Blood Cell (RBC) Count 3.44 mill/uL (4.70-6.10); White Blood Cell (WBC) Count 9.3 thou/uL (4.8-10.8)
[2018-10-05 05:23] LABS: Anion Gap 20 mmol/L (10-20); BUN (Urea Nitrogen) 17 mg/dL (8.4-25.7); Calc. Creatinine Clearance 41 mL/min (70-130); Calcium 10.2 mg/dL (7.8-10.44); Carbon Dioxide 15 mmol/L (23-31); Chloride 105 mmol/L (98-107); Estimated GFR-MDRD Greater than 90; Glucose 130 mg/dL (83-110); Potassium 4.7 mmol/L (3.5-5.1); Sodium 135 mmol/L (136-145)
[2018-10-05] MEDS ORDERED: Eucerin (Mineral Oil/Petrolatum,White) 30 gm Jar TOP PRN (07:28)
[2018-10-05] MEDS ORDERED: Diabetic Tussin 200 MG/10 ML UDCUP PO PRN (07:28)
[2018-10-05] MEDS ORDERED: Zolpidem Tartrate 5 MG TAB PO PRN (07:28)
[2018-10-05] MEDS ORDERED: Senokot S 8.6-50 MG TAB PO PRN (07:28)
[2018-10-05] MEDS ORDERED: Artificial Tears 18 DROP/0.9 ML EA EYE PRN (07:28)
[2018-10-05] MEDS ORDERED: Ondansetron ODT 4 MG TAB PO PRN (07:28)
[2018-10-05] MEDS ORDERED: Sodium Chloride 0.65% Nasal 44 ML BOT EA NARE PRN (07:28)
[2018-10-05] MEDS ORDERED: Loratadine 10 MG TAB PO PRN (07:28)
[2018-10-05] MEDS ORDERED: hydrALAZINE 20 MG/ML VIAL SLOW IVP PRN (07:28)
[2018-10-05] MEDS ORDERED: Loperamide HCl 2 MG CAP PO PRN (07:28)
[2018-10-05] MEDS ORDERED: Cepastat Lozenges 1 LOZ PO PRN (07:28)
[2018-10-05] MEDS ORDERED: HYDROcodone/Acetaminophen 5/325 mg Tablet PO PRN (07:28)
[2018-10-05] MEDS ORDERED: Ondansetron PF 4 MG/2 ML Vial IVP PRN (07:28)
[2018-10-05] MEDS ORDERED: Calcium Carbonate 500 MG ChewTAB PO PRN (07:28)
[2018-10-05] MEDS ORDERED: Dextrose 50% Abboject 50 ML SYRINGE SLOW IVP PRN (07:30)
[2018-10-05] MEDS ORDERED: Dextrose 5% in Water 1,000 ML IV PRN (07:30)
[2018-10-05] MEDS ORDERED: HumaLOG 300 UNITS/3 ML VIAL SC PRN ×2 (07:30)
[2018-10-05] MEDS ORDERED: Prevnar 13-Val Conj/PF 0.5 ML SYRINGE IM ONE (09:00)
[2018-10-05] MEDS: Enoxaparin Sodium 40 MG/0.4 ML SYRINGE SC SCH (09:52)
[2018-10-05] MEDS: Famotidine 20 MG TAB PO SCH ×2 (09:52→21:07)
--- NOTE | 2018-10-05 10:21 | PDOC.PN ---
- Subjective Encounter Start Date: 10/05/18 Encounter Start Time: 08:10 -: old records requested/rev pt did not sleep well last night, he was confused, this morning he is calm, very weak, - Objective Resuscitation Status - Order Detail: 10/04/18 13:40 Resuscitation Status Routine Resuscitation Status: FULL: Full Resuscitation Discussed with: daughter Kaelyn CROWLEY Reviewed: Yes Vital Signs & Weight: Vital Signs (12 hours) Temp Pulse Resp BP BP Pulse Ox 10/05/18 07:46 97.5 F L 125 H 18 90/59 L 100 10/05/18 03:32 124 H 20 103/57 L 100 10/04/18 23:37 98.2 F 129 H 16 104/56 L 93 L 10/04/18 22:40 100 Weight Weight 94 lb 12.78 oz I&O: 10/04/18 10/05/18 10/06/18 06:59 06:59 06:59 Intake Total 200 Balance 200 Result Diagrams: 10/05/18 04:18 10/05/18 04:18 Phys Exam - Physical Examination Constitutional: NAD HEENT: PERRLA, moist MMs, sclera anicteric Neck: no JVD, supple bilateral scattered rales and wheeze Cardiovascular: RRR, no significant murmur, no rub Gastrointestinal: soft, non-tender, no distention, positive bowel sounds Musculoskeletal: no edema, pulses present Neurological: non-focal, normal sensation Lymphatic: no nodes Psychiatric: normal affect Skin: no rash, normal turgor Dx/Plan (1) Pulmonary embolism Code(s): I26.99 - OTHER PULMONARY EMBOLISM WITHOUT ACUTE COR PULMONALE Status : Acute Comment: due to tumor thrombus (2) Atrial fibrillation Code(s): I48.91 - UNSPECIFIED ATRIAL FIBRILLATION Status: Acute Qualifiers: Atrial fibrillation type: chronic Qualified Code(s): I48.2 - Chronic atrial fibrillation (3) Physical deconditioning Code(s): R53.81 - OTHER MALAISE Status: Acute (4) COPD (chronic obstructive pulmonary disease) Status: Chronic (5) Chronic anemia Code(s): D64.9 - ANEMIA, UNSPECIFIED Status: Chronic (6) Diabetes type 2, controlled Code(s): E11.9 - TYPE 2 DIABETES MELLITUS WITHOUT COMPLICATIONS Status: Chronic (7) H/O malignant neoplasm of prostate Code(s): Z85.46 - PERSONAL HISTORY OF MALIGNANT NEOPLASM OF PROSTATE Status: Chronic (8) Hyperlipidemia Code(s): E78.5 - HYPERLIPIDEMIA, UNSPECIFIED Status: Chronic Qualifiers: Comment: (9) Non-small cell lung cancer with metastasis Code(s): C34.90 - MALIGNANT NEOPLASM OF UNSP PART OF UNSP BRONCHUS OR LUNG Status: Chronic (10) Pleural effusion Code(s): J90 - PLEURAL EFFUSION, NOT ELSEWHERE CLASSIFIED Status: Chronic (11) Protein-calorie malnutrition, moderate Code(s): E44.0 - MODERATE PROTEIN-CALORIE MALNUTRITION Status: Chronic - Plan cont current plan of care * continue lovenox * echo pending result * cardiology and oncology recommendation appreciated * medication reviewed as below * symptomatic treatment. Review of Systems - Review of Systems ENT: negative: Ear Pain, Ear Discharge, Nose Pain, Nose Discharge, Nose Congestion, Mouth Pain, Mouth Swelling, Throat Pain, Throat Swelling, Other Respiratory: negative: Cough, Dry, Shortness of Breath, Hemoptysis, SOB with Excertion, Pleuritic Pain, Sputum, Wheezing Cardiovascular: negative: chest pain, palpitations, orthopnea, paroxysmal nocturnal dyspnea, edema, light headedness, other Gastrointestinal: negative: Nausea, Vomiting, Abdominal Pain, Diarrhea, Constipation, Melena, Hematochezia, Other Genitourinary: negative: Dysuria, Frequency, Incontinence, Hematuria, Retention , Other Musculoskeletal: negative: Neck Pain, Shoulder Pain, Arm Pain, Back Pain, Hand Pain, Leg Pain, Foot Pain, Other Other: not reliable due to his level of alertness - Medications/Allergies Allergies/Adverse Reactions: Allergies Allergy/AdvReac Type Severity Reaction Status Date / Time No Known Drug Allergies Allergy Verified 10/04/18 18:00 Medications: Current Medications Acetaminophen (Tylenol) 650 mg PO Q4H PRN PRN Reason: Headache/Fever/Mild Pain (1-3) Hydrocodone Bitart/Acetaminophen ([place] 5/325) 1 tab PO Q4H PRN PRN Reason: Moderate Pain (4-6) Albuterol/Ipratropium (Duoneb) 3 ml NEB [id number] PRN PRN Reason: SOB &/or Wheezing Artificial Tears (Tears Naturale) 2 drop EA EYE PRN PRN PRN Reason: Dry Eyes Bisacodyl (Dulcolax) 10 mg MA DAILYPRN PRN PRN Reason: Constipation Calcium Carbonate (Tums) 1,000 mg PO Q4H PRN PRN Reason: Heartburn or Indigestion Dextrose/Water (Dextrose 50%) 25 gm SLOW IVP PRN PRN PRN Reason: Hypoglycemia Enoxaparin Sodium (Lovenox) 40 mg SC 0900,2100 [facility] Last Admin: 10/05/18 09:52 Dose: 40 mg Famotidine (Pepcid) 20 mg PO BID [facility] Last Admin: 10/05/18 09:52 Dose: 20 mg Glucagon (Glucagon) 1 mg IM PRN PRN PRN Reason: Hypoglycemia Guaifenesin (Robitussin Sf) 200 mg PO Q4H PRN PRN Reason: Cough Hydralazine HCl (Apresoline) 10 mg SLOW IVP Q4H PRN PRN Reason: SBP > 180 and HR < 70 Dextrose/Water (D5w) 1,000 mls @ 0 mls/hr IV .Q0M PRN PRN Reason: Hypoglycemia Insulin Human Lispro (Humalog) 0 units SC .MILD SLIDING SCALE PRN PRN Reason: Mild Correctional Scale Insulin Human Lispro (Humalog) 0 units SC .BEDTIME SLIDING SC PRN PRN Reason: Bedtime Correctional Scale Loperamide HCl (Imodium) 2 mg PO PRN PRN PRN Reason: Diarrhea/Loose Stools Loratadine (Claritin) 10 mg PO DAILYPRN PRN PRN Reason: Sinus Symptoms Mineral Oil/White Petrolatum (Eucerin Cream) 0 gm TOP BIDPRN PRN PRN Reason: Dry Skin Nicotine (Nicoderm Patch) 21 mg TD Q24HR [facility] Last Admin: 10/04/18 17:56 Dose: Not Given Ondansetron HCl (Zofran Odt) 4 mg PO Q6H PRN PRN Reason: Nausea/Vomiting Ondansetron HCl (Zofran) 4 mg IVP Q6H PRN PRN Reason: Nausea/Vomiting Senna/Docusate Sodium (Senokot S) 2 tab PO BID PRN PRN Reason: Constipation Sodium Chloride (Winkler Nasal Mondamin 0.65%) 0 ml EA NARE QIDPRN PRN PRN Reason: Nasal Congestion Throat Lozenges (Cepastat Lozenges) 1 prashant PO Q2H PRN PRN Reason: Sore Throat Zolpidem Tartrate (Ambien) 5 mg PO HSPRN PRN PRN Reason: Insomnia
[2018-10-05 14:01] VITALS: BMI 14.0
--- NOTE | 2018-10-05 14:36 | CON ---
DATE OF CONSULTATION: 10/05/2018 CHIEF COMPLAINT: Shortness of breath. HISTORY OF PRESENT ILLNESS: The patient is an 83-year-old man, who describes being about 5 years into his lung cancer diagnosis. About a year ago, he decided to not pursue any further therapy. Over the last few days, he has been having some shortness of breath that was sufficient to prompt his family to take him to the ER in [place]. When I talk with him, he does not describe very much shortness of breath and in fact, he is hard-pressed to explain why he went to the hospital. For the most part, the patient is nonambulatory and spends most of his time in bed. In addition to having widely metastatic lung cancer, the patient also has prostate cancer. PAST SURGICAL HISTORY: Also significant for an appendectomy and he had a MediPort placement. MEDICATIONS: He does not take any medicines on a regular basis. ALLERGIES: HE HAS NO KNOWN DRUG ALLERGIES. SOCIAL HISTORY: He continues to smoke. REVIEW OF SYSTEMS: Most notable for progressive debilitation and weakness. PHYSICAL EXAMINATION: GENERAL: He is lucid, but it is a bit of a struggle to understand what he is saying because he speaks in such a low voice, it is a bit of a mumble. He is cachectic and very frail-appearing. VITAL SIGNS: His heart rate is in 120s. Blood pressure 90/59 to 104/56. Respirations are 18. Nasal cannula oxygen, his O2 saturations of 100%. He appears reasonably comfortable. LABORATORY DATA: His CT scan shows a large pericardial effusion, but also shows a massive tumor burden, some of which appears to be invading the pericardium superiorly and left laterally along the pulmonary vasculature and encasing or invading the vasculature into the left lung. He also has a large tumor burden at the right hilum. His echocardiogram showed a large effusion with some right atrial collapse. IMPRESSION AND RECOMMENDATIONS: I suspect the patient is approaching end of life. The patient appears far more comfortable than I had anticipated finding him and to me denied much in the way of any symptoms. His oncologist has talked to them about having hospice see him. They are not particularly enthusiastic about pursuing any sort of palliative procedure such as pericardial window. I have discussed at length with them about it. Obviously, the procedure itself involves some discomfort. At this point, he is comfortable enough that it is hard to say that I can make him any more comfortable by draining this fluid and the point that is in doubt. However, it is whether doing a pericardial window would prevent unpleasant symptoms that might otherwise develop and be difficult to control without drainage. Currently, he is stable enough that, I am going to let him consider his options and talk to hospice before pressing him about whether to proceed. Job ID: [id number]
[2018-10-05] MEDS ORDERED: Diltiazem 125 MG in Sodium Chloride 0.9% 100 ML IVPB SCH (17:30)
[2018-10-05] MEDS ORDERED: Digoxin 0.5 MG/2 ML AMP SLOW IVP SCH (17:30)
--- NOTE | 2018-10-05 18:27 | PRG ---
DATE OF SERVICE: 10/05/2018 This patient has non-small cell lung cancer with metastasis as well as severe pericardial effusion and atrial fibrillation with rapid ventricular response, hypotension, and dyspnea from multifactorial etiology including pulmonary embolism with tumor thrombus and tumor spread. He has worsening of end-stage lung cancer and his condition is terminal. He has been evaluated by oncologist, cashier, and CV Surgery so far, and I spoke with the family member on phone about the patient's code status and next level of care. First, I spoke with the patient's on phone, Ms. Kaelyn Jones, at [phone] and confirmed the patient's code status with her and the patient is DNR. I spoke with her about the patient's current condition and she expressed understanding about not doing any aggressive intervention including no pericardial window and she was not in favor of doing any kind of surgery other than just comforting measure. Subsequently, I spoke with the daughter at [phone] and I also spoke with the patient's son at [phone], and all are agreed with the patient's terminal status and they do not want any kind of heroic measure on him including CPR or resuscitation or intubation in case cardiopulmonary arrest happens. This patient's prognosis is extremely poor. Palliative Care on the case, and we are trying our best to make him comfortable with a conservative way, and this patient's prognosis is extremely poor. I have spoken to the nurse about code status changed to DNR, and DNR order has been placed in the computer. Job ID: [id number]
[2018-10-05 21:03] VITALS: TEMP 97.5
[2018-10-05] MEDS ORDERED: Morphine 4 MG/ML VIAL SLOW IVP SCH (23:30)
[2018-10-05] MEDS ORDERED: Furosemide 20 MG/2 ML VIAL SLOW IVP SCH (23:30)
[2018-10-06] MEDS ORDERED: Morphine 2 MG/ML SYRINGE SLOW IVP PRN (02:33)
[2018-10-06 03:23] VITALS: BP 84/53
--- NOTE | 2018-10-06 14:33 | DIS ---
DATE OF ADMISSION: 10/04/2018 DATE OF DISCHARGE: 10/06/2018 early a.m., 10/06/2018. PRIMARY CARE PROVIDER: Dr. Luz Maria Szymanski. FINAL DIAGNOSES: Acute pulmonary embolism, large pericardial effusion, lung cancer, and atrial fibrillation. HOSPITAL COURSE: The patient was admitted to [facility] through [facility]. He had presented with shortness of breath. He was found to have atrial fibrillation with rapid ventricular response with some ST elevations suggestive of pericarditis. Lactic acid was 5.9. Sodium was 132. The patient was initially full code status, seen in consultation by Melvina Wagoner, nurse practitioner. The patient has had no treatment for his lung cancer since May. The patient was seen in consultation by Dr. Tree Ji, Cardiology. The patient has been started on therapeutic Lovenox for his PE that had been discovered on CT of the chest. Echocardiogram revealed severe pericardial effusion with EF of 40% to 45%. The patient was subsequently seen by Dr. King Laboy, Cardiovascular Surgery for possible pericardial window. The family was not interested in same. As mentioned before, the patient's status was changed to DNR. The patient remained tachycardiac with labile blood pressure and at approximately 0430 hours in the morning 10/06, he succumbed. I have not ever seen this patient. This discharge note is dictated from the available information in the electronic medical record. Job ID: [id number]
== END 2018-10-06 07:26 | disposition expired | DRG 314 ==
LOC: ERS 07:29 → 2NO 16:03
PROVIDERS: ADMIT Internal Medicine; ATTEND Internal Medicine
DX: I31.9 Disease of pericardium, unspecified (principal); I26.99 Other pulmonary embolism without acute cor pulmonale; C34.11 Malignant neoplasm of upper lobe, right bronchus or lung; J90 Pleural effusion, not elsewhere classified; E44.0 Moderate protein-calorie malnutrition; C79.9 Secondary malignant neoplasm of unspecified site; Z68.1 Body mass index [BMI] 19.9 or less, adult; I31.3 Pericardial effusion (noninflammatory); Z66 Do not resuscitate; Z51.5 Encounter for palliative care; I48.91 Unspecified atrial fibrillation; N40.0 Benign prostatic hyperplasia without lower urinary tract symptoms; F17.210 Nicotine dependence, cigarettes, uncomplicated; J44.9 Chronic obstructive pulmonary disease, unspecified; I48.2 Chronic atrial fibrillation; R53.81 Other malaise; E11.9 Type 2 diabetes mellitus without complications; E78.5 Hyperlipidemia, unspecified; I95.9 Hypotension, unspecified; D64.9 Anemia, unspecified; Z85.46 Personal history of malignant neoplasm of prostate; Z90.49 Acquired absence of other specified parts of digestive tract; Z79.899 Other long term (current) drug therapy; Z92.3 Personal history of irradiation
CPT/HCPCS: 36415; 36416; 71275; 80048; 84484; 85025; 90471; 90670; 93005; 93306; 94640; 94660; 96361; 96365; 96366; 96367; 96372; G0009; J1160; J1642; J1650; J1940; J2270; J2543; J3370; J3490; J7620; Q9966